=== PATIENT | female | born 1980 | race Caucasian/White ===

== ENCOUNTER 2016-11-07 17:05 | Observation (INO) | payer BC, OTHER ==
[~2016-11-07] VITALS: Ht 162.6 cm; Wt 76.6 kg
[~2016-11-07 17:05] MED LIST: BENA25CA2 PO; EXTR500C4 PO; IBUPOTC PO; NEXI40CA PO; PERCOCET PO
[2016-11-07] MEDS ORDERED: PRED10PA2 PO (17:31)
[2016-11-07] MEDS ORDERED: MOBI7.5T10 PO (17:31)
[2016-11-07] MEDS ORDERED: METO25TA74 PO (17:31)
[2016-11-07] MEDS ORDERED: TOPA50TA7 PO (17:31)
[2016-11-07] MEDS ORDERED: NS 500 ML IV ONE (18:00)
[2016-11-07 18:08] LABS: BASO % 0.4 % (0.0-1.0); EOS % 0.4 % (0.0-3.0); LARGE UNSTAINED CELL # 0.1 K/mm3 (0.0-0.4); LARGE UNSTAINED CELL % 0.6 % (0.0-4.0); LYMPH # 1.6 K/mm3 (1.5-4.5); LYMPH % 18.7 % (24.0-44.0); MEAN CORPUSCULAR HEMOGLOBIN 29.3 pg (27.0-33.0); MEAN CORPUSCULAR HGB CONC 32.2 g/dl (32.0-36.5); MEAN CORPUSCULAR VOLUME 90.9 fl (80.0-96.0); MONO # 0.4 K/mm3 (0.0-0.8); MONO % 4.4 % (0.0-5.0); NEUTROPHILS # 6.1 K/mm3 (1.8-7.7); NEUTROPHILS % 75.5 % (36.0-66.0); PLATELET COUNT, AUTOMATED 279 k/mm3 (150-450); WHITE BLOOD COUNT 8.1 K/mm3 (4.0-10.0)
[2016-11-07 18:12] LABS: CONTROL LINE HCG INT CTR LINE PRESENT
[2016-11-07 18:20] LABS: ANION GAP 9 MEQ/L (8-16); BLOOD UREA NITROGEN 24 MG/DL (7-18); CALCIUM LEVEL 9.4 MG/DL (8.5-10.1); CARBON DIOXIDE LEVEL 21 MEQ/L (21-32); CHLORIDE LEVEL 112 MEQ/L (98-107); GLOMERULAR FILTRATION RATE 53.5 (>60); GLUCOSE, FASTING 116 MG/DL (70-105); POTASSIUM SERUM 3.7 MEQ/L (3.5-5.1); SODIUM LEVEL 142 MEQ/L (136-145)
[2016-11-07] MEDS ORDERED: ISOVUE-370 76% 100ML VIAL (Q9967) As Ordered ONE (18:25)
[2016-11-07] MEDS ORDERED: ACETAMINOPHEN TAB 650MG DOSE (2X325MG) PO ONE (19:00)
[2016-11-07] MEDS ORDERED: GI COCKTAIL 50ML BTL(HYOSCYAMINE/MAALOX/LIDOCAINE VISCOUS)(1:3:1) PO ONE (19:00)
--- NOTE | 2016-11-07 19:00 | REPUSA ---
History: R/o PE. Comparison: No prior CTA of the chest available Technique: A CT-pulmonary angiogram was performed. A dose of intravenous contrast was administered. A xial images were displayed, as were sagittal and coronal reconstructions. A 3-D model was also render ed. Exam DLP: Findings: No CT evidence of pulmonary embolism is identified. There is no evidence of thoracic aortic aneurysm or dissection. No air space consolidation is identified in the lungs. There is no evidence of pulmonary edema. No pa thologically enlarged hilar or mediastinal lymph nodes are identified. No significant pleural or titi cardial fluid collection is seen. There is no evidence of pneumothorax. Mild The included portion of the upper abdomen does not show significant abnormality. Impression: No evidence of pulmonary embolism is identified.
[2016-11-07 20:52] LABS: ABG BASE EXCESS -4.6 (-2.0-2.0); ABG HCO3 16.9 MEQ/L (22.0-26.0); ABG PARTIAL PRESSURE CO2 23.7 mmHg (35.0-45.0); ABG PARTIAL PRESSURE O2 96.4 mmHg (75.0-100.0); ABG STANDARD HCO3 20.7 MEQ/L (22.0-26.0); ABG TOTAL CO2 17.7 MEQ/L (22.0-29.0); ABG pH (ARTERIAL) 7.472 UNITS (7.350-7.450)
[2016-11-07] MEDS ORDERED: diphenhydrAMINE 50 MG CAP PO SCH (21:00)
[2016-11-07] MEDS ORDERED: TOPIRAMATE (TopAMAX) 25 MG TAB PO SCH (21:00)
[2016-11-07] MEDS ORDERED: DIPH50CA PO (21:34)
[2016-11-07] MEDS ORDERED: ACETAMINOPHEN TAB 650MG DOSE (2X325MG) PO PRN (22:45)
[2016-11-07] MEDS ORDERED: NS 1,000 ML IV SCH (23:00)
[2016-11-08] VITALS (9 sets, daily range): BP systolic 122–141; BP diastolic 80–93; PULSE 160
[2016-11-08] MEDS: METOPROLOL SUCC *XL* 25MG TAB (TopROL *XL*) PO SCH ×2 (01:44→20:55)
--- NOTE | 2016-11-08 02:09 | HPE ---
DATE OF ADMISSION: 11/08/2016 PRIMARY CARE PROVIDER: Dr. Avila. FAMILY PRACTICE MD: Dr. Hernandez CHIEF COMPLAINT: Chest pain and shortness of breath. HISTORY OF PRESENT ILLNESS: Ms. Sol is a pleasant 36-year-old female with past medical history of hypertension who presented to the emergency department (ED) with complaint of worsening chest pain and shortness of breath in the last 2 days. Chest pain is located midsternal area and occurred while she was trying to do the dishes. Describes as sharp and at times will go to her back and her left jaw. Occasionally associated with numbness to her jaw and her arm. In the last 2 days, she has had multiple episodes of chest pain each one can last anywhere from minutes to 4 hours. Symptoms would usually go away with rest but today her symptoms worsened despite just sitting and trying to brush her hair. Pain is worse with deep inspiration, minimal exertion but not with positional change. Improves with Aleve and hot baths. Associated with shortness of breath, palpitations, dry cough, intermittent diffuse joint pain, from elbow down to ankles. Denies paroxysmal nocturnal dyspnea, pillow orthopnea nausea, leg swelling, fevers, chills, night sweats, difficulty with speech and swallow, new rashes, lesions. Admits that her chest pain actually started in August 2016 while she was at work. At that time, she initially had left arm pain, which immediately radiated to her mid chest and then to her back. At that time, she initially ignored her symptoms because she thought it was a viral infection. However, her chest pain persisted and she later presented to the emergency room (ER) in [place]. She was then found to be hypertensive at 190/110, was diagnosed with anxiety and sent home with Medrol pack. Reported brief relief of symptom until she started tapering her dose. Since then has had intermittent chest pain with exertion such as running or walking up the stairs. She had another "flare-up" episode which included chest pain, palpitations, and diffuse joint pains 2 weeks ago, There was suspicion that she might have rheumatoid arthritis because of positive rheumatoid factor in the past and was started on prednisone. She was also evaluated by Dr. Hernandez, had a stress test and echocardiogram which were negative. She was then started on metoprolol. States that since starting on the metoprolol, her palpitations improved but the rest of her symptoms remain despite Prednisone. Prior to August, patient was able to run 5-10K, 1 mile uphill without any symptoms. In the ED, after walking the patient for a short distance, her pulse oximetry dropped down to 72 on room air. Heart rate fluctuated from 60s to 120s. PAST MEDICAL HISTORY: 1. Murmur diagnosed at . Patient had a workup for this many years ago. 2. Hypertension diagnosed at 33. 3. Headaches with hypertensive episodes. 4. GERD. 5. Insomnia. PAST SURGICAL HISTORY: 1. Hysterectomy for uterine prolapse. 2. Tonsillectomy. 3. Multiple esophagogastroduodenoscopies (EGDs) for GERD in [place]. ALLERGIES: No known drug allergies. HOME MEDICATIONS: - Prednisone, previously on 60 mg, now 10 mg, started 2 weeks ago - Mobic 7.5 mg daily, started 2 days ago, previously was taking Aleve, four pills up to 3-4 times a day - aspirin 325 mg daily, for pain - Topamax 50 mg by mouth twice a day, started by PCP for pain - Extra Strength Tylenol 1000 daily - Nexium 40 mg daily - Benadryl 50 mg nightly SOCIAL HISTORY: The patient used to be a social smoker, smoked probably for a total of 5 years, but only 1-2 cigarettes per day. She stopped smoking after her episodes started in August. Drinks three glasses of wine every few months. Does not notice that her symptoms worsen when she drinks wine. No drug use. 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 Previously was working at [employer]. No exposure to tuberculosis, asbestos. Currently lives at home with her family, three dogs. Lifetime travel includes going to [place] many years ago and also [place]. No travels recently. FAMILY HISTORY: Mother with breast cancer at 39 and thyroid tumor. Father with tachyarrhythmia, ulcerative colitis, osteoarthritis. Paternal grandfather had CVA and pacemaker at 42. Siblings are healthy. No family history of sudden in the family at a young age. REVIEW OF SYSTEMS: CONSTITUTIONAL: Denies fevers, chills, rigors. Positive for 7-pound weight loss in the last 7 days due to decreased appetite. HENT: Positive for intermittent headaches when her blood pressure is high, but no difficulty with speech, swallow. Positive for intermittent vertigo since being on Topamax. EYES: No diplopia, blurred vision, transient vision loss. CARDIOVASCULAR: As above. PULMONARY: As above. No hemoptysis. GASTROINTESTINAL: Denies hematochezia, melena, or hematemesis, nausea, vomiting , diarrhea, constipation. GENITOURINARY: No dysuria, frequency or hematuria. MUSCULOSKELETAL: Positive for intermittent joint pain as above, no joint swelling NEUROLOGICAL: No paralysis, paresthesia. Positive for headache as above. ENDOCRINE: Positive for excessive dry mouth in the last 2 weeks, has been drinking more water. Negative for diabetes or thyroid disease. LYMPHATICS: No lumps, bumps, or swelling anywhere in neck, axilla, or groin. HEMATOLOGY: No abnormal bleeding or bruising. INTEGUMENT: No new rashes, lesions PSYCHIATRIC: Was told that her symptoms were related to anxiety PHYSICAL EXAMINATION: VITAL SIGNS: Blood pressure 127/90, heart rate 86, temperature 98.7. Her highest blood pressure in the ED was 175/103. Heart rate highest was 126. Pulse oximetry lowest in the ED was 72% currently 99% on room air. Respiratory rate 18. GENERAL: Patient is lying in bed approximately 30-degree angle, comfortable, no acute respiratory or psychiatric distress. and friend at bedside. HEENT: Normocephalic, atraumatic. Moist oral mucosa. No thrush or lesions appreciated. Nasal septum midline. EYES: Extraocular movement intact. Pupils equal and reactive to light. NECK: Supple. Trachea midline. No jugular venous distention (JVD). No thyromegaly. CHEST: Symmetric chest rise. No accessory muscle use. Breath sounds were diminished in bilateral lung bases, but clear without rales, wheezing or rhonchi. HEART: Regular with normal S1, S2, could not appreciate murmurs or rubs or gallops. ABDOMEN: Soft, nontender, nondistended. Bowel sounds present. No guarding. No rebound. No peritoneal sign. No organomegaly. EXTREMITIES: No pedal edema. Pedal pulses present bilaterally. NEUROLOGIC: Strength 5/5 in all extremities, sensory intact. No focal deficits appreciated. SKIN: No obvious rashes or lesions appreciated. LYMPHATICS: No lymphadenopathy in axilla or groin. PSYCHIATRIC: Appears anxious. LABORATORY DATA: WBC 8.1, hemoglobin 14.2, hematocrit 44.1, platelets 270, neutrophils 75.5. Sodium 142, potassium 3.7, chloride 112, carbon dioxide 21, BUN 24, creatinine 1.2. This is increased compared to her previous labs 2 years ago, which was 0.9. Glucose 116, calcium 9.4. First set of troponins negative. ABG pH 7.47, pCO2 22.7, pO2 96.4. Chest x-ray showed no acute cardiopulmonary disease. CTA without evidence of PE. EKG showed sinus rhythm with ventricular rate of 98, QTc is 440. IMPRESSION AND PLAN: Ms. Sol is a 36-year-old female with history of hypertension, who presented tonight with shortness of breath, chest pain. 1. Chest pain. Etiology unclear. Possible causes include cardiac, pulmonary, autoimmune, or endocrinology. So far her first set of cardiac markers is negative. EKG was unrevealing in the emergency department (ED). Will continue to trend troponin. ED provider has spoken to Dr. Rodríguez, who at this time recommends performing echocardiogram with bubble study to further evaluate. In terms of pulmonary symptoms, aside from her dry cough she has no symptoms suggestive of infection. CTA also was unrevealing for pulmonary embolism (PE). She does have some joint pain and reportedly had rheumatoid factor check in the past and was told that it was positive. We will check rheumatoid factor and anti-cyclic citrullinated peptide (anti-CCP) along with EVI. It is interesting that her symptoms did not improve with steroids which would suggest that this is less likely to be autoimmune. She also reports palpitations and hypertensive with episodic headaches. Therefore, will also work her up for pheochromocytoma (pheo). 2. Hypoxia. Reason unclear. Occurred with ambulation. Currently doing well on room air. The patient will have workup as mentioned above. 3. Hypertension. Check plasma and urine catecholamines and renin aldosterone ratio due to her symptoms associated with headaches and palpitations. Have also added thyroid-stimulating hormone (TSH). 4. Acute kidney injury. Like secondary to NSAIDs. We will hold nephrotoxic medications and start with gentle hydration. 5. Gastroesophageal reflux disease (GERD). Continue home dose proton pump inhibitor (PPI). 6. Deep venous thrombosis (DVT) prophylaxis. Sequential compression devices (SCDs), thromboembolism deterrent stockings (TEDS) and heparin. DISPOSITION: Due to the patient's condition, we expect her stay to be greater than two midnights. My preceptor for this patient encounter was Dr. Nedra Larry. The preceptor was physically present in the building during the encounter and was fully available as needed. All aspects of the patient interview, examination, medical decision making process, and medical care plan development were reviewed and approved by the preceptor. The preceptor is aware and concurs with the plan as stated in the body of this note and will attest to such by his/her co-signature. TRACEE
[2016-11-08] MEDS: HEPARIN SOD (PORCINE) 5000 UNITS/ML VIAL SC SCH ×3 (05:20→20:52)
[2016-11-08 05:24] LABS: ALBUMIN 3.7 GM/DL (3.2-5.2); ANION GAP 9 MEQ/L (8-16); BLOOD UREA NITROGEN 18 MG/DL (7-18); CALCIUM LEVEL 8.1 MG/DL (8.5-10.1); CARBON DIOXIDE LEVEL 21 MEQ/L (21-32); CHLORIDE LEVEL 112 MEQ/L (98-107); CREATININE FOR GFR 0.95 MG/DL (0.55-1.02); GLOMERULAR FILTRATION RATE > 60.0 (>60); GLUCOSE, FASTING 86 MG/DL (70-105); MAGNESIUM LEVEL 2.3 MG/DL (1.8-2.4); MEAN CORPUSCULAR HEMOGLOBIN 30.3 pg (27.0-33.0); MEAN CORPUSCULAR HGB CONC 33.4 g/dl (32.0-36.5); MEAN CORPUSCULAR VOLUME 90.7 fl (80.0-96.0); PHOSPHORUS LEVEL 3.2 MG/DL (2.5-4.9); POTASSIUM SERUM 3.7 MEQ/L (3.5-5.1); RED CELL DISTRIBUTION WIDTH 12.9 % (11.5-14.5); SODIUM LEVEL 142 MEQ/L (136-145)
[2016-11-08] MEDS: PANTOPRAZOLE 40MG TAB (PROTONIX) PO SCH (08:00)
--- NOTE | 2016-11-08 08:47 | REP ---
AP PORTABLE CHEST: 11/07/2016. Comparison: CT angiogram chest 45 minutes ago. Clinical history: Chest pain. Findings: The lungs are well inflated and without infiltrate, effusion, atelectasis or mass. Heart is not enlarged. There is no vascular redistribution or pulmonary edema. The aorta is normal. Airway is intact. The bony thorax shows no acute finding on this portable chest. Impression: 1. No acute cardiopulmonary change. No change from the CT angiogram within the hour. Signed by Armen Mcguire MD 11/08/2016 08:51 A
[2016-11-08] MEDS ORDERED: predniSONE 10 MG TAB PO SCH (09:00)
--- NOTE | 2016-11-08 09:41 | IPNPDOC ---
Date Seen The patient was seen on 11/08/16. Progress Note SUBJECTIVE: Patient this morning tells me that she is feeling better she describes a substernal chest pain that radiates up. She tells me that is 2 out of 10 worse yesterday when she presented to the emergency room it was 8 out of 10 she has struggled with this intermittently since August tells me that she is also had shortness of breath with activity. OBJECTIVE PHYSICAL EXAMINATION: VITAL SIGNS: On the monitor before I entered the room her heart rate is in the 80s a Kaity to the room her heart rate does jump up to the low 100s Please see below. GENERAL: Pleasant middle-aged female lying flat in bed in no acute distress whatsoever. She appears mildly anxious HEENT: Pupils are equally round reactive to light she has moist mucous membranes no conjunctival pallor CARDIOVASCULAR: S1-S2 she is tachycardic but I'm examining her once I leave the room on the monitor her heart rate decreases. No rubs appreciated RESPIRATORY: Clear To auscultation. ABDOMINAL: Bowel sounds are present abdomen is soft EXTREMITIES: no clubbing cyanosis or edema NEUROLOGICAL: Awake alert oriented 3 sensory motor intact gait is intact her exam is nonfocal LABORATORY DATA: Please see below. MICROBIOLOGY: Please see below. IMAGING: Patient had a CT angiography of the chest did not that did not reveal any PE Echocardiogram: Ordered. DVT prophylaxis ordered?: Heparin every 8 ASSESSMENT AND PLAN: This is a 36-year-old female with chest pain and dyspnea. PROBLEMS: 1. Chest pain and dyspnea: Unclear etiology at this time the patient is on a PPI she has tried NSAID therapy in the past has been told is costochondritis is but answers did not help. The patient had a positive rheumatoid factor in the recent past as well and was given a short course of steroids however for the past week she does not steroids she has not had any significant improvement in her symptoms in fact the last 3 days or symptoms of worsened. The patient was reportedly started on beta jonatan for palpitations and this is helped her symptoms. The patient reportedly follows with Dr. Hernandez on the outpatient setting she was told she was going to have a stress echo this week Dr. Rodríguez was called by the emergency room and a bubble study was recommended and has been ordered. She'll of her cardiac workup be negative I do have some concern for possibly underlying anxiety given that she feels quite tachycardic when I entered the room she does appear to be anxious and her symptoms worsen while on steroids of course we must rule out organic etiologies first. CTA is negative and immunological workup has been sent including EVI rheumatoid factor and anti- CCP and endocrine workup has also been sent with ranitidine and catecholamines. The patient has had multiple EGDs in [place]. EKG does not have any evidence for pericarditis. The patient was reportedly hypoxic while ambulating in the emergency room yesterday evening however I did speak with the ICU nursing staff today who checked an ambulating O2 sat while she completed multiple laps around the unit without desaturating to a point where she required any oxygen. 2. Hypertension: Controlled at this time. Continue with metoprolol 3. Acute kidney injury: Also related to NSAIDs resolved 4. Gastroesophageal reflux disease: The patient on a PPI this could be determining factor to her symptoms as well. DISPOSITION: We'll continue monitor on telemetry. VS, I&O, 24H, Fishbone Vital Signs/I&O Vital Signs Date Time Temp Pulse Resp B/P Pulse Ox O2 Delivery O2 Flow Rate FiO2 11/08/16 08:00 Room Air 11/08/16 08:00 98.3 104 18 122/82 100 11/07/16 17:24 2 I&O- Last 24 Hours up to 6 AM 11/08/16 06:00 Intake Total 240 ml Balance 240 ml Laboratory Data 24H LABS Laboratory Tests 2 11/07/16 17:31: Activated Partial Thromboplast Time 20.5L, Anion Gap 9, B-Type Natriuretic Peptide < 5.0, White Blood Count 8.1, Red Blood Count 4.85, Hemoglobin 14.2, Hematocrit 44.1, Mean Corpuscular Volume 90.9, Mean Corpuscular Hemoglobin 29.3 , Mean Corpuscular Hemoglobin Concent 32.2, Red Cell Distribution Width 13.0, Platelet Count 279, Neutrophils (%) (Auto) 75.5H, Lymphocytes (%) (Auto) 18.7L, Monocytes (%) (Auto) 4.4, Eosinophils (%) (Auto) 0.4, Basophils (%) (Auto) 0.4, Neutrophils # (Auto) 6.1, Lymphocytes # (Auto) 1.6, Monocytes # (Auto) 0.4, Eosinophils # (Auto) 0.0, Basophils # (Auto) 0.0, C-Reactive Protein, Quantitative < 0.30, Blood Urea Nitrogen 24H, Creatinine 1.20H, Sodium Level 142 , Potassium Level 3.7, Chloride Level 112H, Carbon Dioxide Level 21, Calcium Level 9.4, Total Creatine Kinase 33, Creatine Kinase MB 1.0, Creatine Kinase MB Relative Index 3.03, Glomerular Filtration Rate 53.5L, Human Chorionic Gonadotropin, Qual NEGATIVE, Large Unclassified Cells # 0.1, Large Unclassified Cells % 0.6, Rheumatoid Factor 18.1H, Thyroid Stimulating Hormone (TSH) 0.937, Troponin I < 0.02 11/07/16 20:32: Arterial Blood pH 7.472H, Arterial Blood Partial Pressure CO2 23.7L, Arterial Blood Partial Pressure O2 96.4, Arterial Blood Total CO2 17.7L, Arterial Blood HCO3 16.9L, Arterial Blood Base Excess -4.6L, Arterial Blood Oxygen Saturation 98.1, Blood Gas Bicarbonate Standard 20.7L 11/08/16 00:55: Total Creatine Kinase 36, Creatine Kinase MB 1.0, Creatine Kinase MB Relative Index 2.77, Troponin I < 0.02 11/08/16 04:50: Anion Gap 9, Blood Urea Nitrogen 18, Creatinine 0.95, Sodium Level 142, Potassium Level 3.7, Chloride Level 112H, Carbon Dioxide Level 21, Calcium Level 8.1L, Glomerular Filtration Rate > 60.0, Albumin 3.7, Magnesium Level 2.3 , Phosphorus Level 3.2 11/08/16 08:58: CBC/BMP Laboratory Tests 11/07/16 17:31 Calcium Level 9.4, Total Creatine Kinase 33, Red Blood Count 4.85, Mean Corpuscular Volume 90.9, Mean Corpuscular Hemoglobin 29.3, Mean Corpuscular Hemoglobin Concent 32.2, Red Cell Distribution Width 13.0, Neutrophils (%) (Auto ) 75.5 H, Lymphocytes (%) (Auto) 18.7 L, Monocytes (%) (Auto) 4.4, Eosinophils ( %) (Auto) 0.4, Basophils (%) (Auto) 0.4, Neutrophils # (Auto) 6.1, Lymphocytes # (Auto) 1.6, Monocytes # (Auto) 0.4, Eosinophils # (Auto) 0.0, Basophils # ( Auto) 0.0 11/08/16 04:50 Red Blood Count 4.48, Mean Corpuscular Volume 90.7, Mean Corpuscular Hemoglobin 30.3, Mean Corpuscular Hemoglobin Concent 33.4, Red Cell Distribution Width 12.9 , Anion Gap 9 KERI FITZPATRICK MD Nov 08, 2016 09:41
--- NOTE | 2016-11-08 12:18 | ECHO ---
DATE OF PROCEDURE: 11/08/2016 REFERRING PHYSICIAN: Dr. Calvert. INDICATION: Shortness of breath, chest pain. Study was performed on 11/08/2016 and included "bubble study". HEIGHT: 64 inches. WEIGHT: 162 pounds. DIMENSIONS: IVS: 0.9 LV: 4.1 LVPW: 0.8 LA: 2.9 Aorta: 2.9 Ascending aorta: 3.4 LV systolic: 2.7 RV: 2.8 FINDINGS: The study is of good technical quality. The left ventricle is of normal size and systolic function with estimated ejection fraction (EF) 60-65%. Right ventricle is normal size and systolic function. Both atria appear normal. All four valves appear normal. No pericardial effusion is noted. Inferior vena cava is normal size. Aortic root, aortic arch and abdominal aorta all appear normal. Doppler interrogation reveals no significant aortic and mitral disease. There is trace tricuspid insufficiency with calculated pulmonary artery pressure in low 20s corresponding to normal values. Pulmonic valve is functionally competent. Mitral inflow pattern and tissue Doppler imaging of mitral annulus reveal normal diastolic function (E velocity of mitral inflow is 49.4 cm/sec, E prime velocity septal is 8.2 and lateral 11.7 cm/sec). Injection of agitated saline with and without cough revealed no evidence for [id number] shunt. Conclusions: 1. Normal LV size, systolic and diastolic function. 2. No valvular disease. 3. Normal CVP and likely normal pulmonary artery pressure. 4. No evidence for right to left shunt with injection of agitated saline. 5. Normal echocardiogram. Comments: SBE prophylaxis is not recommended. MTDD
--- NOTE | 2016-11-08 13:29 | CR ---
DATE OF CONSULTATION: 11/08/2016 REQUESTING PROVIDER: Dr. Calvert INDICATION: Chest pain, shortness of breath. HISTORY OF PRESENT ILLNESS: Mrs. Sol is previously unknown to me but she was seen by my colleague Dr. Hernandez in [place]. 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 It turns out that the story starts in early August. She tells me that she was previously doing very well and did not have any significant medical problems, but then in August she started experiencing pressure-like discomfort just left from her sternum. She initially did not pay much attention, but over time the pain got more and more severe and was present virtually 22/02. Taking deep breaths may have aggravated the pain some more but for the most part there was no significant effect. She took some nonsteroidal antiinflammatory drugs, which brought her small relief, but the pain was not severe enough to really look for additional attention. Then starting in September it even got more severe and started interfering with her daily routine. She was seen in the emergency room in [place] and it was felt that she had costochondritis. She got a few days of steroids, which brought some small transient relief but then the pain started radiating to her back just between spine and left scapula and into her left side of her neck as well. She would have days where the pain is so severe that she could barely move. It would be shooting from her neck towards the chest and activity would make the pain worse. She also experienced transient episodes of numbness in both upper and lower extremities. She was seen by her primary care physician, Dr. Avila, and it was felt that it was musculoskeletal in origin. She was given a course of steroids only about a week ago, which did not seem to make much difference. She continued to have severe pain, and what she describes as stiffness. She tells me that usually she wakes up in the morning and she can barely move and she actually goes and it takes almost an hour to get somewhat loose. Eventually though the pain was so excruciating and shortness of breath associated with the bad was so bad that she decided to come to the emergency room. On arrival to emergency room, she was tachycardic and hypertensive, but what was the most striking finding was that when she was ambulated her oxygen dropped into low 80s. Consequently, the decision was made to admit her for further observation. Emergency room evaluation did include electrocardiogram that was unremarkable. Cardiac enzymes that were unremarkable. She had normal BNP and normal CT angiography of his chest looking for pulmonary embolism. Not only that there was no evidence for pulmonary embolism but there also was no lung abnormality that would be detected. PAST MEDICAL HISTORY: 1. She has been taking metoprolol for episodes of tachycardia and hypertension. 2. She has gastroesophageal reflux disease (GERD). 3. Insomnia. SURGICAL HISTORY: Positive for hysterectomy, tonsillectomy and several esophagogastroduodenoscopies (EGDs) for GERD. ALLERGIES: No known allergies. She is taking prednisone taper, Mobic, aspirin, Topamax 50 twice a day for pain control, Tylenol, Nexium and Benadryl. 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 She is the mother of three children, the youngest is 11 years old. He is a social smoker when she will smoke a couple of cigarettes a few times a week but has not smoked since August. She lives with family. There is no recent travel. No significant alcohol other than social. FAMILY HISTORY: Mother has breast cancer and had hyperthyroidism. Father has benign tachycardia and ulcerative colitis. REVIEW OF SYSTEMS: She denies any fever, chills. There is no history of stroke. No ulcers. No skin lesions. No syncope or near-syncope. She has had occasional dizziness and vertigo type of symptoms. No bleeding problems. No epistaxis. No hemoptysis. No distinct cough. No abdominal pain. PHYSICAL EXAMINATION: Mrs. Sol is middle-aged white female who appears approximately her calendar age. I do not appreciate any distress. Seems alert and oriented and completely appropriate. Blood pressure 122/82, heart rate currently around 90 beats per minute. Saturation is 100% on room air and it has been in high 90s since she has been admitted. There were no spikes or high blood pressure since she has been in our hospital, but her heart rate fluctuates from 80s up to maybe 140s and is all sinus rhythm. Lungs are clear to auscultation with good air movement. I do not appreciate any wheezes, crackles or rhonchi. Heart exam with regular rhythm. No gallop, rub or murmur. Abdomen is soft. No tenderness. No rebound tenderness. No hepatosplenomegaly. Extremities are free of edema. Good peripheral pulses. There is small ecchymosis on her right calf. Neurologically, she is intact. I do not appreciate any weakness. I did not formally test deep tendon reflexes. She has very prominent cervical lordosis and there is some palpation tenderness just left from her spine on the cervical level and also thoracic level. LABORATORY: Her CBC is normal. Basic metabolic panel is also normal. Her TSH was within normal limits. Urinalysis was not performed. Her PTT was 20. She has very slightly positive rheumatoid factor at 18.1 and anti citrulline peptide and EVI screen are pending. Also, Lyme disease titer is pending. CT angiography of the chest is completely normal. She had an echocardiogram that was completely normal including [facility] bubble study looking for evidence for [id number] shunt. Electrocardiogram from admission reveals sinus rhythm with ventricular rate 90 beats per minute. I do not appreciate any ST-T abnormalities. ASSESSMENT/PLAN: I do not believe that the patient has a cardiac problem. She has pain that started as left sided chest pain and continues to be in her chest but mostly in her back and neck . It has been constant now for about 3 months or slightly longer. It is does not seem to be aggravated by anything specific even though she feels more short of breath when she is physically active. Based on her description, it appears to me that it is mostly the fact that she has more pain and consequently she probably does not breathe deep enough fearing that it will aggravate the pain further. There is no evidence for pulmonary embolism. Her echocardiogram and ECGs are normal. She has normal cardiac enzymes and normal BNP. I am not sure how to reconcile her symptoms. I think it is reasonable to perform some form of imaging of her cervical and maybe even thoracic spine even though I do not appreciate any focal signs that certainly can have to do with her pain. From cardiac perspective, my suspicion for underlying cardiac disease is low enough that I do not believe that any further evaluation is warranted. I would discontinue her steroids as there has been no clinical improvement and it is not clear what is the diagnosis we are trying to treat. I spoke about the patient with Dr. Calvert, and I also explained to the patient and her and mother that even though I do not have the clear-cut answer, I do not believe there is a cardiac component or disease. CC: MD Thomas Madrid MD MTDD
[2016-11-08] MEDS ORDERED: diphenhydrAMINE INJ 50MG/ML VIAL (J1200) IV PRN (20:30)
[2016-11-08] MEDS: TOPIRAMATE (TopAMAX) 25 MG TAB PO SCH (20:51)
[2016-11-08] MEDS: KETOROLAC 30 MG/ML VIAL (J1885) IV SCH (20:54)
--- NOTE | 2016-11-08 21:00 | ECGEPIP ---
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
[2016-11-09] VITALS: BP 117/78; PULSE 110
[2016-11-09] MEDS: KETOROLAC 30 MG/ML VIAL (J1885) IV SCH (03:45)
[2016-11-09 04:00] VITALS: BP 102/65
[2016-11-09 05:20] LABS: ALBUMIN 3.4 GM/DL (3.2-5.2); CALCIUM LEVEL 8.3 MG/DL (8.5-10.1); CREATININE FOR GFR 1.16 MG/DL (0.55-1.02); GLOMERULAR FILTRATION RATE 55.7 (>60); PHOSPHORUS LEVEL 3.5 MG/DL (2.5-4.9); POTASSIUM SERUM 3.4 MEQ/L (3.5-5.1)
[2016-11-09 05:24] LABS: MEAN CORPUSCULAR HEMOGLOBIN 29.9 pg (27.0-33.0); MEAN CORPUSCULAR HGB CONC 32.6 g/dl (32.0-36.5); MEAN CORPUSCULAR VOLUME 91.7 fl (80.0-96.0); WHITE BLOOD COUNT 6.4 K/mm3 (4.0-10.0)
[2016-11-09] MEDS: HEPARIN SOD (PORCINE) 5000 UNITS/ML VIAL SC SCH (06:22)
--- NOTE | 2016-11-09 07:48 | REP ---
MRI CERVICAL SPINE WITHOUT CONTRAST: 11/08/2016 CLINICAL HISTORY: Interscapular pain radiating to sternal region on the left. States that when posterior pain increases, she becomes syncopal and tachycardia. Pain extends into the neck from the interscapular region. TECHNIQUE: Sagittal T1, T2 and STIR images with axial T1-T2 sequences provided. FINDINGS: Vertebral body heights and marrow signal normal at all levels in the cervical upper thoracic spine. Lordosis is maintained. The disc space and disc water signal also generally maintained. Cervical cord shows no syrinx, atrophy, hemorrhage or mass. There is ample subarachnoid space at the craniocervical junction with no cerebellar tonsillar ectopia. Dens intact. C2-3 through C7-T1: There is no significant disc bulge or herniation and no spinal or foraminal stenosis at any of these levels. IMPRESSION: 1. Normal MRI cervical spine. No spinal or foraminal stenosis, intrinsic signal abnormality within the cord, syrinx, atrophy or mass. No visible or significant degenerative disc disease. Craniocervical junction normal. Signed by Armen Mcguire MD 11/09/2016 08:40 A
--- NOTE | 2016-11-09 07:56 | REP ---
MRI THORACIC SPINE WITHOUT CONTRAST: 11/08/2016. Clinical history: Interscapular pain radiating to the sternal region on the left. The pain increases during ambulation and she may become syncopal or tachycardia, about 3 day symptom duration. The patient had a cervical spine study this date and a portable chest and CT angio chest last evening. Technique: Marker placed at the T2 level and confirmed in position by alignment specialist sagittal images including the craniocervical junction through the upper thoracic region. Axial C7-T1 through T12-L1 images with T1 and T2 weightings along with sagittal T1, T2 and STIR sequences provided. Findings: A normal thoracic kyphosis is seen. There is a small hemangioma in the T8 vertebral body. The vertebral disc space heights and disc water signal are maintained throughout this study. There is no loss of vertebral body heights . Scoliosis. No exaggerated kyphosis. At C7-T1 through T7-8 there is no disc bulge herniation and no spinal or foraminal stenosis. At T8-9 there was a right paracentral disc bulge but this does not abut or flatten the ventral cord surface. There is ample subarachnoid space and foramina. At T9-10, T10-11 through T12-L1 there is no disc bulge or herniation and no spinal or foraminal stenosis. No intrinsic cord signal abnormality, syrinx, atrophy or mass. The conus ends below the T12-L1 level off the field of view. No paraspinal mass. I see no adjacent pleural effusion. Impression: 1. Right paracentral T8-9 disc bulge without disc herniation abutting or flattening of the ventral cord surface, spinal or foraminal stenosis. 2. All the other thoracic levels are intact and without spinal or foraminal stenosis, disc herniation or protrusion. 3. Disc space heights, vertebral body heights and marrow signal normal throughout. No intrinsic cord signal abnormality. Signed by Armen Mcguire MD 11/09/2016 08:41 A
[2016-11-09 08:00] VITALS: BP 111/80
[2016-11-09] MEDS: PANTOPRAZOLE 40MG TAB (PROTONIX) PO SCH (08:29)
[2016-11-09] MEDS: TOPIRAMATE (TopAMAX) 25 MG TAB PO SCH (08:29)
--- NOTE | 2016-11-09 13:58 | DSES ---
DATE OF ADMISSION: 11/08/2016 DATE OF DISCHARGE: 11/09/2016 DISCHARGE DIAGNOSIS: Chest pain. SECONDARY DIAGNOSES: 1. Shortness of breath. 2. Hypertension. 3. Acute kidney injury. 4. Gastroesophageal reflux disease. HOSPITAL COURSE: The patient is a 36-year-old female with a rather perplexing history who around August began having episodic pleuritic chest pain associated with shortness of breath, which was affecting her activities of daily living. She normally is running significant amounts every day but has not been feeling able to do it. She has had intermittent bouts that have been evaluated in numerous emergency rooms without any clear diagnosis being made. She was recently seen in the [facility], where she had a positive rheumatoid factor. She was prescribed Mobic and prednisone. She states that over the next 2 weeks of being on these medications, her symptoms actually worsened. When she presented to the emergency room, she was tachycardic. She also reports a history of intermittent episodes of hypertension, as well, although she was not significantly hypertensive during her stay here, and she was recently started on metoprolol for this. During her hospital course here, she was admitted to the progressive care unit, monitored on telemetry. Laboratory studies were fairly unremarkable other than some mild acute kidney injury likely related to nonsteroidal antiinflammatory drug (NSAID) use, resolved with holding of the NSAIDs. The patient had multiple sets of cardiac enzymes, which were negative, a brain natriuretic peptide (BNP) within normal limits, a thyroid-stimulating hormone (TSH) was within normal limits, and a beta hCG, which was negative. Given her curious history, a renin level was checked, as well as serum catecholamine, also which are currently pending at this time. She also did have a fairly unremarkable urinalysis (UA). Urine catecholamines were checked and are currently pending at this time. Rheumatoid factor was mildly elevated at 18.1. An anti-CCP and antinuclear antibody (EVI) are currently pending. A Lyme titer is pending, also. The patient did have a CT angiography of the chest, which was essentially unremarkable and did not reveal any pulmonary embolism (PE). She also had cervical and thoracic MRIs, which were essentially normal and did not reveal any etiology for her symptoms. The patient was seen in consultation by Dr. Rodríguez, who performed an echocardiogram with a bubble study, which was also fairly normal. ASSESSMENT AND PLAN: This is a 36-year-old female with episodic chest pain and dyspnea. PROBLEM: Episodic chest pain and dyspnea. Her chest pain etiology is unclear at this time. Given that it did worse with steroids, I feel rheumatological conditions are less likely. An endocrine workup has been sent, and she will be followed up with her primary care provider, including renin, serum, and urine catecholamines. She has been told in the past that it is costochondritis. This did not improve with NSAIDs, which I feel is unlikely. Dr. Rodríguez does not feel that there is a cardiac etiology to her symptoms. However, she does have followup scheduled with Dr. Hernandez this week, which she should keep. Imaging here did not reveal any significant abnormalities. She was not hypoxic on ambulations at home. At the present time, her symptoms have completely resolved. She would like to go home. I do have a strong suspicion that her chest pain and dyspnea may be related to anxiety. Throughout her stay, she was noted to be tachycardic when physicians were in the room but on the monitor was no longer tachycardic when they were not in the room. She does appear to be anxious and have anxiety, or it is certainly possible that this is secondary to an organic cause which is yet to fully present itself. At this time, she is medically stable for discharge home when cleared by physical therapy. SUBJECTIVE: Today, the patient reports she is feeling better. She wants to go home. She has no chest pain, shortness of breath, nausea, vomiting, diarrhea, fevers, or chills. OBJECTIVE: VITAL SIGNS: Temperature 97.9, pulse 77, respiratory rate 18, blood pressure (BP) 111/80, oxygen (O2) saturation 100% on room air. GENERAL: She is a young middle-aged healthy female up and ambulating around her room. She does not appear to be in any acute distress. HEENT: Cranial nerves II-XII are grossly intact. She has moist mucous membranes. No elevated in central venous pressure (CVP). CARDIOVASCULAR EXAMINATION: S1, S2. There are no rubs. RESPIRATORY EXAMINATION: Is completely clear. ABDOMINAL EXAMINATION: Is benign. EXTREMITIES: No clubbing, cyanosis, or edema. LABORATORY STUDIES AND IMAGING: As outlined above. ASSESSMENT AND PLAN: This is a 36-year-old female with chest pain and dyspnea. PROBLEMS: 1. Chest pain and dyspnea. As outlined above, it may be related to an endocrine disorder. She should followup her serum and urine catecholamine screen, as well as renin levels, with her primary care. It does not appear to be a cardiac etiology, but she is to followup with Dr. Hernandez. It is quite possible that this is secondary to anxiety versus an organic cause which is yet to fully present itself. She has a mildly positive Rh. Anti-CCP is currently pending. EVI screen is also pending. 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 She is concerned that this was a fungal infection or possibly rheumatoid arthritis, but she does report the metoprolol helps her symptoms. 2. Hypertension. She can continue with metoprolol. 3. Acute kidney injury. Possibly related to NSAIDs. This did resolve with cessation. Will avoid taking Mobic. 4. Gastroesophageal reflux disease. She is on a proton pump inhibitor (PPI), and this may be a contributing factor to her symptoms, as well. 5. Positive rheumatoid factor. She certainly does not meet diagnostic criteria for rheumatoid arthritis. Will discontinue any further steroids and would avoid them in the future unless a clear diagnosis made, if symptoms do not improve with steroids and NSAIDs, making rheumatoid arthritis or other rheumatologic condition less likely. DISPOSITION: The patient is being discharged home to the care of her family. She has been cleared by physical therapy. She is to followup with her primary care provider within [address] Hernandez as previously scheduled. Her diet and activity are as prior to admission. MEDICATIONS AT THE TIME OF DISCHARGE: - Benadryl 50 mg as needed nightly - Nexium 40 mg daily - metoprolol extended release 25 mg nightly - Topamax 50 mg twice a day Greater than 30 minutes spent organizing disposition.
[2016-11-09] MEDS ORDERED: TOPI25TA5 PO (16:27)
[2016-11-10 14:14] LABS: SJOGREN'S ANTI SS-A <0.2 AI (0.0-0.9); SJOGREN'S ANTI SS-B 1.1 AI (0.0-0.9)
[2016-11-11 00:07] LABS: Lyme Disease IgG/IgM Antibodie <0.91 ISR (0.00-0.90); Lyme Disease IgM Ab Quantitati <0.80 index (0.00-0.79)
[2016-11-19 14:19] LABS: ALDOSTERONE 5.1 ng/dL (0.0-30.0); DOPAMINE PLASMA <30 pg/mL (0-48); EPINEPHRINE PLASMA 24 pg/mL (0-62); NOREPINEPHRINE PLASMA 320 pg/mL (0-874)
== END 2016-11-09 09:35 | disposition home or self-care (01) ==
LOC: EDBD 17:05 → M ED 18:03 → M ED INP 18:04 → UNDOADMOB 11-08 00:16 → M ICU 11-08 01:24 → M ED INP 11-08 01:24 → UNDODISOB 11-09 09:35
PROVIDERS: ADMIT Internal Medicine Nephrology; ATTEND Internal Medicine
DX: R07.9 Chest pain, unspecified (principal); R06.02 Shortness of breath; I10 Essential (primary) hypertension; N17.9 Acute kidney failure, unspecified; K21.9 Gastro-esophageal reflux disease without esophagitis; Z79.899 Other long term (current) drug therapy
CPT/HCPCS: 36415; 36600; 71010; 71275; 72141; 72146; 80048; 80069; 81001; 82088; 82383; 82384; 82550; 82553; 82607; 82803; 83735; 83880; 84244; 84443; 84703; 85025; 85027; 85730; 86038; 86140; 86200; 86431; 86617; 93005; 93041; 96372; 96374; 96375; 96376; 97161; 99285; J1200; J1885; Q9967

== ENCOUNTER 2016-11-09 12:24 | Observation (INO) | payer OTHER ==
[~2016-11-09] VITALS: Ht 162.6 cm; Wt 72.0 kg
[~2016-11-09 12:24] MED LIST changes: +DIPH50CA PO; +METO25TA74 PO; +MOBI7.5T10 PO; +PRED10PA2 PO; +TOPA50TA7 PO
[2016-11-09] MEDS ORDERED: GI COCKTAIL 50ML BTL(HYOSCYAMINE/MAALOX/LIDOCAINE VISCOUS)(1:3:1) PO ONE (13:45)
--- NOTE | 2016-11-09 14:52 | ECGEPIP ---
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
[2016-11-09 14:56] LABS: BASO % 0.3 % (0.0-1.0); EOS # 0.1 K/mm3 (0.0-0.50); EOS % 1.4 % (0.0-3.0); LARGE UNSTAINED CELL # 0.1 K/mm3 (0.0-0.4); LARGE UNSTAINED CELL % 1.4 % (0.0-4.0); LYMPH % 24.5 % (24.0-44.0); MEAN CORPUSCULAR HEMOGLOBIN 29.9 pg (27.0-33.0); MEAN CORPUSCULAR HGB CONC 33.6 g/dl (32.0-36.5); MONO # 0.5 K/mm3 (0.0-0.8); MONO % 6.8 % (0.0-5.0); NEUTROPHILS # 5.1 K/mm3 (1.8-7.7); NEUTROPHILS % 65.6 % (36.0-66.0); PLATELET COUNT, AUTOMATED 235 k/mm3 (150-450); RED CELL DISTRIBUTION WIDTH 12.7 % (11.5-14.5); WHITE BLOOD COUNT 7.7 K/mm3 (4.0-10.0)
--- NOTE | 2016-11-09 15:15 | REP ---
CHEST, PA AND LATERAL: 11/09/2016. Clinical history: Dyspnea and cough. Comparison: Portable chest 11/07/2016, CT angiogram chest 11/07/2016. Both of these are negative for acute finding. Findings: Lung reyez are well inflated without pleural effusion, lateral pleural thickening or acute infiltrate. No apical pleural scarring, pneumothorax, or pneumomediastinum. Heart is not enlarged. There is no vascular redistribution or edema. The aorta and airway were unremarkable. No compression deformity in the spine or focal lesion. No free air. Impression: 1. No acute cardiopulmonary disease. Stable chest. No change from the portable chest and CTA chest 2 days ago. Signed by Armen Mcguire MD 11/09/2016 05:22 P
[2016-11-09 15:23] LABS: ANION GAP 9 MEQ/L (8-16); BLOOD UREA NITROGEN 19 MG/DL (7-18); CALCIUM LEVEL 9.6 MG/DL (8.5-10.1); CARBON DIOXIDE LEVEL 24 MEQ/L (21-32); CHLORIDE LEVEL 112 MEQ/L (98-107); CREATININE FOR GFR 1.24 MG/DL (0.55-1.02); GLOMERULAR FILTRATION RATE 51.5 (>60); GLUCOSE, FASTING 107 MG/DL (70-105); POTASSIUM SERUM 4.1 MEQ/L (3.5-5.1); SODIUM LEVEL 145 MEQ/L (136-145)
[2016-11-09 15:27] LABS: ALBUMIN 3.9 GM/DL (3.2-5.2); ALBUMIN/GLOBULIN RATIO 1.39 (1.00-1.93); BILIRUBIN,DIRECT 0.1 MG/DL (0.0-0.2); BILIRUBIN,TOTAL 0.4 MG/DL (0.2-1.0); TOTAL PROTEIN 6.7 GM/DL (6.4-8.2)
[2016-11-09] MEDS ORDERED: ACETAMINOPHEN TAB 650MG DOSE (2X325MG) PO PRN (16:00)
[2016-11-09] MEDS ORDERED: ONDANSETRON 4MG/2ML VIAL (J2405) IV PRN (16:00)
[2016-11-09] MEDS: NS 1,000 ML IV SCH (16:23)
[2016-11-09] MEDS ORDERED: TOPI25TA5 PO (16:27)
[2016-11-09] MEDS ORDERED: SUCRALFATE SUSP 1GM/10ML UD PO ONE (18:15)
[2016-11-09] MEDS ORDERED: IPRATROPIUM 0.02% SOLN 0.5MG/2.5 ML NEB NEB ONE (18:45)
[2016-11-09] MEDS ORDERED: METOPROLOL TART 25 MG TABLET PO ONE (18:45)
[2016-11-09] MEDS ORDERED: LEVALBUTEROL 1.25 MG/0.5 ML CONCENTRATE NEB INH PRN (18:45)
[2016-11-09] MEDS ORDERED: BUDESONIDE 0.5 MG/2 ML INHALATION SUSPENSION INH ONE (18:45)
[2016-11-09] MEDS ORDERED: SUCRALFATE 1 GM TAB PO ONE (18:45)
[2016-11-09] MEDS ORDERED: MONTELUKAST 10 MG TAB PO ONE (18:45)
[2016-11-09] MEDS ORDERED: IPRATROPIUM 0.02% SOLN 0.5MG/2.5 ML NEB INH PRN (18:45)
[2016-11-09] MEDS ORDERED: PANTOPRAZOLE 40MG TAB (PROTONIX) PO ONE (18:45)
[2016-11-09] MEDS ORDERED: LEVALBUTEROL 1.25 MG/0.5 ML CONCENTRATE NEB NEB ONE (18:45)
[2016-11-09] MEDS: IPRATROPIUM 0.02% SOLN 0.5MG/2.5 ML NEB INH SCH (19:07)
[2016-11-09] MEDS: LEVALBUTEROL 1.25 MG/0.5 ML CONCENTRATE NEB INH SCH (19:08)
--- NOTE | 2016-11-09 19:38 | HPE ---
DATE OF ADMISSION: 11/09/2016 PRIMARY CARE PHYSICIAN: Dr. Avila TRUCK DRIVER INSTRUCTOR: Dr. Thomas Hernandez CHIEF COMPLAINT: Shortness of breath, chest pain. HISTORY OF PRESENTING ILLNESS: This is a 36-year-old female with history of hypertension, was admitted on 11/08/2016, discharged on 11/09/2016, for evaluation of chest pain and palpitations. Underwent CT chest which showed no pulmonary embolism, MRI of the cervical and thoracic spine, and hyster machine operator consult, all of which showed no acute abnormalities. Recommendations are for further evaluation of the gastrointestinal (GI) system per her primary care physician. Dr. Rodríguez felt that the patient's symptoms were not related to any cardiac issues. She had no valvular disease on recent echocardiogram with normal ejection fraction. Upon being discharged, patient walked into her house and tried to take a shower, when she had a bout of worsening shortness of breath, significant tachycardia, and atypical chest pain in the epigastric region radiating to the back, prompting her to return to the emergency room. She was found to be tachycardic, ventricular rate of 130 sinus, acute kidney injury with creatinine of 1.24. Hospitalist service was called for further evaluation. Patient stated that she was previously diagnosed with asthma secondary to severe reflux, initially treated, and shortness of breath subsided. She currently complains of chronic cough that is nonproductive. No fever or chills after discharge. Denies any current nonsteroidal antiinflammatory drug (NSAID) use, as previous acute renal failure was thought to be secondary to NSAIDs. PAST MEDICAL HISTORY: 1. Murmur diagnosed at , recurrent echo October 2016 showed no valvular disease. 2. Hypertension, diagnosed at age 33. 3. Headaches with hypertensive episodes. 4. Reflux. 5. Insomnia. 6. Prior history of asthma. 7. Acute kidney injury secondary to NSAIDs. PAST SURGICAL HISTORY: 1. Hysterectomy for uterine prolapse. 2. Tonsillectomy. 3. Multiple EGDs for reflux in [place]. ALLERGIES: No known drug allergies. HOME MEDICATIONS: - diphenhydramine 50 mg nightly - Nexium 40 daily - metoprolol 25 nightly - Topamax 50 twice a day SOCIAL HISTORY: Previously smoked cigarettes, a total of 5 years, 1-2 cigarettes daily, quit smoking in August. Drinks 3 glasses of wine every few months. 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 Currently lives at home with her family and three dogs. Lifetime travel includes [place] and [place]. No recent travels. FAMILY HISTORY: Mother had breast cancer age 39, thyroid tumor. Father with tachyarrhythmia, ulcerative colitis, osteoarthritis. Paternal grandfather CVA, pacers. Siblings are healthy. No family history of sudden . REVIEW OF SYSTEMS: Per history of present illness (HPI). 12-point system otherwise negative. PHYSICAL EXAMINATION: Temperature 97.9, pulse 77, respiratory rate 18, blood pressure 111/80, 100% on room air. Generally, coughing at the bedside, able to speak in full sentences, faint expiratory wheezing, diminished breath sounds. Heart S1, S2, sinus tachycardia. No cyanosis. No use of respiratory or accessory muscles. Abdomen soft, nontender, nondistended. Extremities no pitting edema. LABORATORY DATA: 11/09/2016: CBC: White count 7.7, hemoglobin 13, hematocrit 41, platelet count 235. Sodium 145, potassium 4.1, chloride 112, bicarbonate 24, BUN 19, creatinine 1.24, glucose 107, total bilirubin 0.4, direct bilirubin 0.1, AST 13, ALT 25, alkaline phosphatase 58, total CK 40, MB-fraction 1, troponin less than 0.02, total protein 6.7, albumin 3.9, amylase 54, lipase 130, TSH 1.45. IMAGING STUDIES: Chest xray on 11/09/2016. No acute cardiopulmonary disease. No change from portable chest and CTA chest from 2 days ago. MRI of the thoracic and cervical spine. Normal MRI cervical spine, no visible significant degenerative disc disease. Thoracic spine MRI shows right T8-9 disc bulge without disc herniation, abutting, or flattening of the ventral cord. All other thoracic levels are without spinal or foraminal stenosis. ASSESSMENT AND PLAN: This is a 36-year-old female who presents to the emergency room as a readmission for complaints of shortness of breath and chest pain. Full workup included CT chest negative for pulmonary embolism (PE), MRI of the cervical and thoracic spine showing disc bulge at T8-9. Prior history of reflux and asthma as a child, tachycardic and tachypneic. CURRENT ISSUES: 1. Atypical chest pain. Patient will be admitted for observation. Upper gastrointestinal (GI) series in the morning. Empiric treatment with Carafate, proton pump inhibitor (PPI). Check for Helicobacter (H) pylori antigen. May need endoscopy for a biopsy. Defer to Dr. Mario. 2. Palpitations. Continue home dose of metoprolol. Thyroid stimulating hormone (TSH) is normal. Outpatient followup with her hyster machine operator. 3. History of asthma. Nebulizer treatments routinely. 4. Acute kidney injury secondary to nonsteroidal antiinflammatory drugs (NSAIDs). IV fluid trial. 5. Positive rheumatoid factor. Outpatient referral to a air cargo ground operations supervisor. 6. Deep venous thrombosis (DVT) prophylaxis with heparin subcutaneous.
[2016-11-09] MEDS: PERCOCET 5MG/325MG TAB PO PRN (20:07)
--- NOTE | 2016-11-09 20:15 | ECGEPIP ---
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
[2016-11-09] MEDS: SUCRALFATE 1 GM TAB PO SCH (22:48)
[2016-11-09] MEDS: HEPARIN SOD (PORCINE) 5000 UNITS/ML VIAL SC SCH (23:15)
[2016-11-10] VITALS: BP 100/61
[2016-11-10] MEDS: IPRATROPIUM 0.02% SOLN 0.5MG/2.5 ML NEB INH SCH ×6 (01:27→23:10)
[2016-11-10] MEDS: LEVALBUTEROL 1.25 MG/0.5 ML CONCENTRATE NEB INH SCH ×6 (01:27→23:10)
[2016-11-10] MEDS: NS 1,000 ML IV SCH ×2 (02:41→12:00)
[2016-11-10 04:00] VITALS: BP 98/55
[2016-11-10] MEDS: HEPARIN SOD (PORCINE) 5000 UNITS/ML VIAL SC SCH ×3 (06:11→21:51)
[2016-11-10] MEDS: SUCRALFATE 1 GM TAB PO SCH ×4 (07:24→21:51)
[2016-11-10 07:28] LABS: BASO % 0.6 % (0.0-1.0); EOS # 0.2 K/mm3 (0.0-0.50); EOS % 3.3 % (0.0-3.0); LARGE UNSTAINED CELL # 0.1 K/mm3 (0.0-0.4); LARGE UNSTAINED CELL % 1.8 % (0.0-4.0); LYMPH # 2.7 K/mm3 (1.5-4.5); LYMPH % 42.6 % (24.0-44.0); MEAN CORPUSCULAR HEMOGLOBIN 29.4 pg (27.0-33.0); MEAN CORPUSCULAR HGB CONC 33.2 g/dl (32.0-36.5); MEAN CORPUSCULAR VOLUME 88.6 fl (80.0-96.0); MONO # 0.4 K/mm3 (0.0-0.8); MONO % 6.5 % (0.0-5.0); NEUTROPHILS # 2.7 K/mm3 (1.8-7.7); NEUTROPHILS % 45.2 % (36.0-66.0); PLATELET COUNT, AUTOMATED 221 k/mm3 (150-450); RED CELL DISTRIBUTION WIDTH 12.8 % (11.5-14.5)
[2016-11-10 07:50] LABS: ANION GAP 10 MEQ/L (8-16); BLOOD UREA NITROGEN 16 MG/DL (7-18); CALCIUM LEVEL 8.8 MG/DL (8.5-10.1); CARBON DIOXIDE LEVEL 20 MEQ/L (21-32); CHLORIDE LEVEL 115 MEQ/L (98-107); CREATININE FOR GFR 1.17 MG/DL (0.55-1.02); GLOMERULAR FILTRATION RATE 55.1 (>60); GLUCOSE, FASTING 100 MG/DL (70-105); MAGNESIUM LEVEL 2.3 MG/DL (1.8-2.4); POTASSIUM SERUM 3.5 MEQ/L (3.5-5.1); SODIUM LEVEL 145 MEQ/L (136-145)
[2016-11-10 08:00] VITALS: BP 126/76
[2016-11-10] MEDS: BUDESONIDE 0.5 MG/2 ML INHALATION SUSPENSION INH SCH ×2 (08:00→19:19)
[2016-11-10] MEDS ORDERED: E-Z-GAS II EFFERVESCENT PACKET (SODIUM BICARB./CITRIC ACID/SIMETHICONE) As Ordered ONE (10:44)
[2016-11-10] MEDS ORDERED: E-Z-HD 98% w/w 340GM SUSP BTL As Ordered ONE (10:44)
[2016-11-10] MEDS ORDERED: E-Z PAQUE 60% w/v SUSP 355ML BOTTLE As Ordered ONE (10:44)
[2016-11-10] MEDS ORDERED: GI COCKTAIL 50ML BTL(HYOSCYAMINE/MAALOX/LIDOCAINE VISCOUS)(1:3:1) PO PRN (14:00)
--- NOTE | 2016-11-10 14:31 | IPN ---
DATE: 11/10/2016 36-year-old female seen at bedside this morning. She appears to be resting comfortably but she describes still having chest discomfort with radiation to her back, cough, intermittent wheeze. No nausea, some intermittent water brash. OBJECTIVE: Temperature is 98, pulse 92, respiratory rate is 18, blood pressure 126/76, SpO2 is 97% on room air. GENERAL: The patient appears to be in no acute distress. She is alert and oriented. HEENT: Unremarkable. LUNGS: Clear with occasional expiratory wheeze that clears with cough. HEART: Regular rate and rhythm. ABDOMEN: Soft. EXTREMITIES: No edema, no calf tenderness. LABORATORY DATA: White count 6.0, hemoglobin 12.4, platelets were 221, sodium 145, potassium 3.5, chloride 115, bicarbonate 20, anion gap 10, BUN 16, creatinine 1.17 down from 1.24, glucose 100, magnesium 2.3, troponin remains less than 0.02 times four. No EKG changes. Chest x-ray is unremarkable for any acute cardiopulmonary processes and she had a CT angio of the chest that was done on 11/07/2016, no evidence of pulmonary embolism. No acute findings. 1. Atypical chest pain. Recently seen and evaluated by Dr. Rodríguez on her last admission. He dated his consult 11/08/2016 and did not feel that there was any substantial underlying cardiac issues. She does have a history of asthma as well as gastroesophageal reflux disease (GERD). I did increase her Protonix to 40 mg twice a day. She is on Carafate 1 gram before food and at bedtime and I added on a gastrointestinal (GI) cocktail every 6 hours as needed. Will go ahead and continue with DuoNebs. Will give her a small dose Solu-Medrol and she did have an upper GI with small-bowel follow-through done today that we are awaiting those results. The conundrum is trying to understand what her chest discomfort may be related to. I do at this point suspect it is more likely related to GERD. I spoke to Dr. Champagne who has taken over the practice of Dr. Martinez as the design consultant in [place]. He did inform me that the patient's last EGD was done on 01/08/2016 which showed no abnormalities, no suggestion of Israel's esophagus or any other significant findings at that time. At any rate, we will proceed as indicated and I have spoken to Dr. Castro to see if he would be willing to consult on the patient tomorrow for a possible EGD, since she had an upper GI with small-bowel follow-through, the barium may interfere with the ability to do the scope today. 2. Asthma. As outlined above. 3. Insomnia. No current issues. 4. Hypertension. Will continue to keep an eye on this. She did receive a one-time dose of Lopressor. Blood pressures have been running fine today. I do suspect that there may be some underlying anxiety, will continue to follow to see how she does. 5. Deep venous thrombosis (DVT) prophylaxis. Subcutaneous heparin.
[2016-11-10 14:45] VITALS: BP 122/83
[2016-11-10] MEDS ORDERED: methylPREDNISolone INJ 125 MG/2 ML VIAL (J2930) IV ONE (14:45)
[2016-11-10] MEDS: PERCOCET 5MG/325MG TAB PO PRN ×2 (15:07→21:54)
--- NOTE | 2016-11-10 17:10 | REP ---
UPPER GI, AIR CONTRAST, AND SMALL BOWEL FOLLOW THROUGH: The procedure was performed under the direct supervision of Dr. Gibson. The images were reviewed with Dr. Gibson. Liquid barium and gas-producing granules were given in the erect position as well as liquid barium in the prone oblique position in order to perform a double contrast upper GI examination. Additionally, liquid barium was given at the end of the examination in order to perform a small bowel follow through. The oral and pharyngeal stages of deglutition are unremarkable. Esophageal transport is prompt and efficient and there is no esophagitis, stricture, mucosal ring or hiatal hernia. The gastroesophageal junction is patulous and there is gastroesophageal reflux demonstrated to above the level of the yandy. The stomach flynn are normally outlined. The rugal folds are smooth and regular. There is no gastritis, neoplasm or ulcer disease. The duodenal flynn are normally outlined. The mucosal folds are smooth and regular. There is no duodenitis, pancreatitis, peptic ulcer disease or neoplasm. The visualized portion of the proximal small bowel appears normal in course and caliber. The barium column was followed through the small bowel to the level of the terminal ileum. Small bowel transit time is approximately 40 minutes. During fluoroscopy, gentle palpation shows all loops are freely movable and pliable. There are no fixed or angulated loops. The small bowel mucosal pattern is normal in course and caliber. There is no transition to suggest a partial small bowel obstruction. Spot filming of the terminal ileum shows it to be unremarkable. IMPRESSION: The gastroesophageal junction is patulous and there is gastroesophageal reflux demonstrated to above the level of the yandy. Otherwise, unremarkable double contrast upper GI and small bowel follow through examination. 2 minutes and 36 seconds of fluoroscopy time was utilized for this procedure. Reviewed by FABIAN Oconnor 11/11/2016 05:04 PEdited and Signed by Manas Gibson MD 11/12/2016 12:55 P
[2016-11-10 20:00] VITALS: BP 124/76
[2016-11-10] MEDS: TOPIRAMATE (TopAMAX) 25 MG TAB PO SCH (21:51)
[2016-11-10] MEDS: PANTOPRAZOLE 40MG TAB (PROTONIX) PO SCH (21:53)
[2016-11-10] MEDS: METOPROLOL SUCC *XL* 25MG TAB (TopROL *XL*) PO SCH (21:53)
[2016-11-11] VITALS (9 sets, daily range): BP systolic 117–138; BP diastolic 69–92
[2016-11-11] MEDS: NS 1,000 ML IV SCH ×3 (01:07→17:25)
[2016-11-11] MEDS: LEVALBUTEROL 1.25 MG/0.5 ML CONCENTRATE NEB INH SCH ×6 (02:54→23:26)
[2016-11-11] MEDS: IPRATROPIUM 0.02% SOLN 0.5MG/2.5 ML NEB INH SCH ×6 (02:54→23:26)
[2016-11-11] MEDS: HEPARIN SOD (PORCINE) 5000 UNITS/ML VIAL SC SCH ×3 (06:00→22:06)
--- NOTE | 2016-11-11 07:21 | IPN ---
DATE: 11/11/2016 36-year-old female seen at bedside. Feels that her chest tightness seems to be doing better after the dose of Solu-Medrol we gave her yesterday. She has been nothing by mouth (n.p.o.) since midnight and we are planning on an esophagogastroduodenoscopy (EGD) later this morning with Dr. Castro. She denies any nausea, vomiting. No abdominal pain. She states she does continue to have some vague pain and similar complaints yesterday in her back and between her shoulder blades. OBJECTIVE: Temperature is 99, pulse 108, respiratory rate 20, blood pressure (BP) 117/69, SPO2 is 96% on room air. General: The patient appears to be in no acute distress, alert and oriented. HEENT: Unremarkable. Lungs: Clear to auscultation. Heart: Regular rate and rhythm. Abdomen: Soft. Extremities: No edema. No calf tenderness. LABORATORY DATA: Pending at this time. ASSESSMENT/PLAN: 1. Atypical chest pain with radiation to her back, epigastric discomfort upon admission. Concern is for acid reflux. I did speak to the gastroenterology team in [place]. She had her last EGD in January 2016 which did not show any abnormalities. No Israel's esophagitis. We did increase her Protonix to 40 mg twice a day, continued with Carafate and will do a repeat EGD on her today to see how she looks. Her upper GI with small bowel follow-through that was done yesterday did read as the gastroesophageal junction as patulous and there was gastroesophageal reflux disease (GERD) demonstrated above the level of the yandy, otherwise unremarkable double contrast upper GI and small bowel follow-through. Dr. Castro has been consulted and will see how she looks on EGD. 2. Wheeze with underlying history of asthma in the past as a child. She did tolerate the Solu-Medrol. Will start her on a prednisone taper today and check a bedside spirometry. We may want to consider adding additional inhalers, perhaps an Advair inhaler. Before doing so, I would like to check a bedside spirometry to confirm whether or not she has obstructive lung disease. 3. Insomnia. No current issues. 4. Hypertension on admission with some tachycardia. Her pain level seems to be better controlled. Blood pressure is stable. Her heart rate does appear to be improving as well. As mentioned previously, she did have a CT angio of the chest that was performed on 11/07/2016 and did not demonstrate any pulmonary embolism or any acute findings at that time. 5. Deep vein thrombosis (DVT prophylaxis. Will continue with subcutaneous heparin.
[2016-11-11 07:30] LABS: EOS % 0.5 % (0.0-3.0); LARGE UNSTAINED CELL # 0.1 K/mm3 (0.0-0.4); LARGE UNSTAINED CELL % 0.8 % (0.0-4.0); LYMPH # 1.4 K/mm3 (1.5-4.5); LYMPH % 14.1 % (24.0-44.0); MEAN CORPUSCULAR HEMOGLOBIN 28.9 pg (27.0-33.0); MEAN CORPUSCULAR VOLUME 90.3 fl (80.0-96.0); MONO # 0.4 K/mm3 (0.0-0.8); MONO % 4.6 % (0.0-5.0); NEUTROPHILS # 7.4 K/mm3 (1.8-7.7); NEUTROPHILS % 80.1 % (36.0-66.0); PLATELET COUNT, AUTOMATED 219 k/mm3 (150-450); RED CELL DISTRIBUTION WIDTH 13.1 % (11.5-14.5); WHITE BLOOD COUNT 9.2 K/mm3 (4.0-10.0)
[2016-11-11] MEDS: SUCRALFATE 1 GM TAB PO SCH ×4 (07:30→22:08)
[2016-11-11 07:52] LABS: ANION GAP 10 MEQ/L (8-16); BLOOD UREA NITROGEN 10 MG/DL (7-18); CALCIUM LEVEL 8.6 MG/DL (8.5-10.1); CARBON DIOXIDE LEVEL 18 MEQ/L (21-32); CHLORIDE LEVEL 115 MEQ/L (98-107); CREATININE FOR GFR 0.78 MG/DL (0.55-1.02); GLOMERULAR FILTRATION RATE > 60.0 (>60); GLUCOSE, FASTING 94 MG/DL (70-105); POTASSIUM SERUM 3.6 MEQ/L (3.5-5.1); SODIUM LEVEL 143 MEQ/L (136-145)
[2016-11-11] MEDS: BUDESONIDE 0.5 MG/2 ML INHALATION SUSPENSION INH SCH ×2 (08:06→19:49)
[2016-11-11] MEDS: PANTOPRAZOLE 40MG TAB (PROTONIX) PO SCH ×2 (09:00→22:07)
[2016-11-11] MEDS: TOPIRAMATE (TopAMAX) 25 MG TAB PO SCH ×2 (09:25→22:08)
[2016-11-11] MEDS ORDERED: LIDOCAINE 2% INJ 100 MG/5 ML SDV (FOR ANES.) As Ordered ONE (14:35)
[2016-11-11] MEDS ORDERED: PROPOFOL 200 MG/20 ML VIAL As Ordered ONE (14:35)
--- NOTE | 2016-11-11 14:59 | ROOR ---
Patient Name: Alexandria Sol Procedure Date: 11/11/2016 2:42 PM Date of : 1980 Age: 36 Room: [facility] Gender: Female Note Status: Finalized Procedure: Upper GI endoscopy + Biopsies Indications: Unexplained chest pain Providers: Vic Castro MD Referring MD: Salo Avila MD Requesting Provider: Medicines: Monitored Anesthesia Care Complications: No immediate complications. Procedure: Pre-Anesthesia Assessment: - The heart rate, respiratory rate, oxygen saturations, blood pressure, adequacy of pulmonary ventilation, and response to care were monitored throughout the procedure. The Endoscope was introduced through the mouth, and advanced to the second part of duodenum. The upper GI endoscopy was accomplished without difficulty. The patient tolerated the procedure well. Findings: The Z-line was irregular and was found 37 cm from the incisors. Multiple biopsies were obtained with cold forceps for evaluation to rule out Israel's Esophagus randomly at the gastroesophageal junction. A medium-sized hiatal hernia was present. No other significant abnormalities were identified in a careful examination of the stomach. The exam of the duodenum was otherwise normal. Impression: - Z-line irregular, 37 cm from the incisors. - Medium-sized hiatal hernia. - Multiple biopsies were obtained at the gastroesophageal junction. - The examination was otherwise normal. Recommendation: - Patient has a contact number available for emergencies. The signs and symptoms of potential delayed complications were discussed with the patient. Return to normal activities tomorrow. Written discharge instructions were provided to the patient. - High fiber diet. - Return patient to [facility] for ongoing care. - Continue present medications. - Await pathology results. - The findings and recommendations were discussed with the patient's family. - The findings and recommendations were discussed with the referring physician. - Check Portal Online for Path Results.([email or web address]) Vic Castro MD Vic Castro MD 11/11/2016 2:58:55 PM This report has been signed electronically. Number of Addenda: 0 Note Initiated On: 11/11/2016 2:42 PM Estimated Blood Loss: Estimated blood loss: none.
[2016-11-11] MEDS: PERCOCET 5MG/325MG TAB PO PRN (17:29)
[2016-11-11] MEDS ORDERED: LEVALBUTEROL HFA 45MCG/ACT 15 GM INHALER INH PRN (18:00)
[2016-11-11] MEDS: METOPROLOL SUCC *XL* 25MG TAB (TopROL *XL*) PO SCH (22:07)
[2016-11-12] VITALS: BP 105/58
[2016-11-12 04:00] VITALS: BP 129/81
[2016-11-12] MEDS: NS 1,000 ML IV SCH (04:00)
[2016-11-12] MEDS: LEVALBUTEROL 1.25 MG/0.5 ML CONCENTRATE NEB INH SCH ×2 (05:14→08:00)
[2016-11-12] MEDS: IPRATROPIUM 0.02% SOLN 0.5MG/2.5 ML NEB INH SCH ×2 (05:14→08:00)
[2016-11-12] MEDS ORDERED: LEVA12INH INH (05:56)
[2016-11-12] MEDS ORDERED: NEXI40CA PO (05:56)
[2016-11-12] MEDS ORDERED: PULM90IN INH (05:56)
[2016-11-12] MEDS ORDERED: XOPEAER INH (05:56)
[2016-11-12] MEDS ORDERED: SUCR1TA PO (05:56)
[2016-11-12] MEDS ORDERED: COMP1MIS3 XX (05:58)
[2016-11-12] MEDS: HEPARIN SOD (PORCINE) 5000 UNITS/ML VIAL SC SCH (06:00)
[2016-11-12 07:24] LABS: BASO % 0.4 % (0.0-1.0); EOS # 0.1 K/mm3 (0.0-0.50); EOS % 2.5 % (0.0-3.0); LARGE UNSTAINED CELL # 0.1 K/mm3 (0.0-0.4); LARGE UNSTAINED CELL % 1.1 % (0.0-4.0); LYMPH # 1.9 K/mm3 (1.5-4.5); LYMPH % 34.6 % (24.0-44.0); MEAN CORPUSCULAR HEMOGLOBIN 29.3 pg (27.0-33.0); MEAN CORPUSCULAR HGB CONC 32.9 g/dl (32.0-36.5); MEAN CORPUSCULAR VOLUME 89.2 fl (80.0-96.0); MONO # 0.3 K/mm3 (0.0-0.8); MONO % 5.1 % (0.0-5.0); NEUTROPHILS % 56.1 % (36.0-66.0); PLATELET COUNT, AUTOMATED 190 k/mm3 (150-450); RED CELL DISTRIBUTION WIDTH 13.1 % (11.5-14.5); WHITE BLOOD COUNT 5.2 K/mm3 (4.0-10.0)
--- NOTE | 2016-11-12 07:42 | BSSPIR ---
DATE OF PROCEDURE: 11/09/2016 Spirometry shows a normal forced vital capacity and FEV-1. The FEV-1/FVC ratio was normal. Flow volume curve shows some flattening in the excretory limb. IMPRESSION: Normal spirometry flow volume loop study.
[2016-11-12 07:43] LABS: ANION GAP 9 MEQ/L (8-16); BLOOD UREA NITROGEN 13 MG/DL (7-18); CALCIUM LEVEL 8.3 MG/DL (8.5-10.1); CARBON DIOXIDE LEVEL 19 MEQ/L (21-32); CHLORIDE LEVEL 116 MEQ/L (98-107); CREATININE FOR GFR 0.89 MG/DL (0.55-1.02); GLOMERULAR FILTRATION RATE > 60.0 (>60); GLUCOSE, FASTING 101 MG/DL (70-105); POTASSIUM SERUM 3.6 MEQ/L (3.5-5.1); SODIUM LEVEL 144 MEQ/L (136-145)
[2016-11-12 08:00] VITALS: BP 125/82
[2016-11-12] MEDS: BUDESONIDE 0.5 MG/2 ML INHALATION SUSPENSION INH SCH (08:00)
[2016-11-12] MEDS: SUCRALFATE 1 GM TAB PO SCH (08:20)
[2016-11-12] MEDS: TOPIRAMATE (TopAMAX) 25 MG TAB PO SCH (08:20)
[2016-11-12] MEDS: PANTOPRAZOLE 40MG TAB (PROTONIX) PO SCH (08:20)
--- NOTE | 2016-11-12 08:47 | DSES ---
DATE OF ADMISSION: 11/09/2016 DATE OF DISCHARGE: 11/12/2016 PRIMARY CARE PROVIDER: Dr. Avila. CELLULAR BIOLOGIST: Dr. Hernandez. CONSULTATIONS: None. PROCEDURES: None. COMPLICATIONS: None. DISCHARGE DIAGNOSES: 1. Increased shortness of breath, possibly underlying reactive airway/asthma. 2. Atypical chest pain ruled out PE and cardiac causes. 3. Hiatal hernia with gastroesophageal reflux disease (GERD). 4. Palpitations with unremarkable thyroid workup. 5. Previous mild acute kidney injury resolved. 6. Positive rheumatoid factor without any significant other findings on immunology or serology workup. BRIEF HOSPITAL COURSE: Mrs. Sol is a pleasant 36-year-old female who presented to the emergency department with recurrent chest pain, shortness of breath. Had previously been seen and evaluated by Dr. Rodríguez who felt that the issues were not cardiac related. She does have a previous history of asthma. She had noticed that she had had some wheeze during the course of her hospital stay. She did inform me that she had been using some cleaning agents a few weeks ago and had started to develop some tightness in her chest, shortness of breath that has been slow to resolve. She has had a pretty extensive workup during her hospital stay as well as her previous hospital stay dated a few days prior to this admission with an unremarkable EKG. CT angio of the chest was negative for pulmonary embolism. No other acute findings were seen as well. We did send her for an upper GI with small-bowel follow-through. Those results demonstrated a patulous gastroesophageal (GE) junction with some gastroesophageal reflux (GERD) demonstrated at the level of the yandy with no other significant findings. Her EGD was performed by Dr. Castro, did show some slight irregularity of the Z-line. Biopsies were taken. Medium size hiatal hernia was noted and again she does have some underlying acid reflux. She was given recommendations regarding high fiber diet and to follow up with the pathology results from the biopsies, however, Dr. Castro did not believe that this was necessarily contributing to her respiratory symptoms. She did have a bedside spirometry that was performed that did show some slight flattening of the expiratory phase, otherwise it was a normal spirometry. She did get a dose of Solu-Medrol while she was admitted as well as Joe and had been started previously on Pulmicort and Xopenex inhaler. Will continue on those and she can followup outpatient and likely will need outpatient referral to pulmonology for a methacholine challenge test. Any rate she, does appear to be back to her baseline today and appropriate for discharge. For further information regarding intake, physical labs, diagnostics, please refer to the history and physical. PHYSICAL EXAMINATION: This morning temperature 98.5, pulse 107 and regular, respiratory rate 18, BP 129/81, SPO2 is 97% on room air. General: The patient appears to be in no acute distress. She is alert, pleasant. HEENT: Unremarkable. Lungs: Clear. Heart: Regular rhythm. Abdomen: Soft. Extremities: No edema or calf tenderness. LABORATORY DATA: White count 5.2, hemoglobin 10.9, platelets 190,000. Sodium 144, potassium 3.6, chloride 116, bicarb 19, anion gap 9, BUN is 13, creatinine 0.89, glucose 101. Discharge condition is good. DISPOSITION: Discharge to home with appropriate followup. DISCHARGE MEDICATIONS: - Pulmicort inhaler 2 puffs twice daily - Nexium 40 mg twice daily - Xopenex inhaler as directed every 1-2 puffs ever 4 to 6 hours as needed - Xopenex nebulizer as directed as needed - Carafate 1 gram by mouth before meals and at bedtime - Benadryl 50 mg daily at bedtime for sleep - metoprolol ER 25 mg daily at bedtime for palpitations, tachycardia. - Topamax 50 mg twice daily DISCHARGE INSTRUCTIONS: Discharge to home. Follow up with Dr. Avila within the next 5-7 days. She will likely need a referral to pulmonology for methacholine challenge. High-fiber diet. Activity as tolerated. She should seek medical attention if symptoms worsen or progress. She voices understanding. Discharge took 35 minutes. TRACEE
--- NOTE | 2016-11-13 06:19 | CR ---
DATE OF CONSULTATION: 11/11/2016 This is a 36-year-old white female admitted to [facility] for complaint of left-sided chest discomfort and shortness of breath. The patient has been complaining of difficulty with shortness of breath since August. She had noticed recently that her symptoms have become worse. She apparently has a known history of chronic reflux and has had previous endoscopies showing hiatal hernia but no Israel's. She relates that her reflux is controlled and is on Nexium 40 mg daily to help control her symptoms. She had no fevers, night sweats or shaking chills. No involuntary weight loss. No nausea or vomiting. The patient had been admitted 11/08/2016 and discharged on 11/09/2016 for evaluation of chest pain, no palpitations. CT scan at that time was negative for a pulmonary emboli. MRI of the cervical and thoracic spine and cardiology consult showed no abnormalities. She had been seen by Dr. Rodríguez who felt that there was no cardiac etiology to cause symptoms. The patient is being seen by gastrointestinal (GI) to further evaluate for possible reflux and/or GI source for her symptoms. The patient has had an upper GI series with small-bowel follow-through on 11/10/2016 which was interpreted as a patulous GE junction showing some reflux to the level of the yandy. Otherwise upper GI series and small-bowel follow-through was negative. Laboratory studies on admission were essentially normal. Her hemoglobin and hematocrit down to 10.9 and 3.2. Chemistry was normal. Past medical history is as above. ALLERGIES: No known declared allergies. PAST MEDICAL HISTORY: 1. Hypertension diagnosed at age 33. 2. Chronic reflux. 3 Insomnia. 4. Prior history of asthma. 5. Acute kidney injury secondary to non-steroidal anti-inflammatory drugs (NSAIDs). PAST SURGICAL HISTORY: Hysterectomy. Uterine prolapse. Tonsillectomy. Multiple EGDs for reflux in [place]. MEDICATIONS INCLUDE: - Benadryl - Nexium - metoprolol - Topamax SOCIAL HISTORY: The patient used to smoke a total of 5 years, quit in August. 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 FAMILY HISTORY: Noncontributory to the above problem. REVIEW OF SYSTEMS: Noncontributory. EXAM: Well-nourished white female in no obvious acute distress. Some atypical chest pain, unknown etiology at present time. PLAN: Set the patient up for endoscopy for further evaluation of patient's reflux, rule out Israel's and check for inflammation. PLAN 1. EGD. 2. Maintain Nexium. 3. Recommend pulmonary consultation for possible hyper-reactive airway disease.
== END 2016-11-12 10:00 | disposition home or self-care (01) ==
LOC: M ED 16:02 → M ED INP 16:03 → M PED 11-10 14:49
PROVIDERS: ADMIT General Practice; ATTEND Hospitalist
DX: R07.89 Other chest pain (principal); R06.02 Shortness of breath; J45.909 Unspecified asthma, uncomplicated; G47.00 Insomnia, unspecified; I10 Essential (primary) hypertension; K21.9 Gastro-esophageal reflux disease without esophagitis; R00.0 Tachycardia, unspecified; Z79.899 Other long term (current) drug therapy; Z87.891 Personal history of nicotine dependence
CPT/HCPCS: 36415; 43239; 71020; 74245; 80048; 80076; 82150; 82550; 82553; 83690; 83735; 84443; 85025; 86677; 88305; 93005; 93041; 94640; 94760; 96374; 99285; J2930

== ENCOUNTER → 2017-02-09 | Outpatient (CLI) | payer OTHER ==
[~2017-02-09] MED LIST changes: +COMP1MIS3 XX; +LEVA12INH INH; +LEVAINH INH; +METHACHOLINE KIT (J7674) INH ONE; +METO1TAB32 PO; -METO25TA74 PO; +MOBI4TAB PO; -MOBI7.5T10 PO; +PULM90IN INH; +SUCR1TA PO; -TOPA50TA7 PO; +TOPA50TA8 PO; +TOPI25TA10 PO
--- NOTE | 2017-02-09 18:30 | PFTRPT ---
Tech: Jaelyn ROGER RRT Age: 36 Sex: Female Race: Height: 63.50 Inches Weight: 164.00 Lbs BSA: 1.79 Diagnosis: R06.02 TECH NOTE: Xopenex for postbronchodilator. METHACHOLINE CHALLENGE REPORT: ORDERING PROVIDER: Roberto Smith MD DATE OF SERVICE: 02/09/17 INTERPRETATION: The study was of excellent technical quality. Under protocol, methacholine was administered. At a dose of 0.25 mg (1.375 CDUs), a 45% decline in the FEV1 was noted. The PC20 of 0.06 is significant. Flow rates returned to baseline post bronchodilator administration. IMPRESSION: Positive methacholine challenge study. MTDD
== END ==
LOC: M CARPUL 10:32
PROVIDERS: ATTEND Internal Medicine Pulmonary Disease
DX: R06.02 Shortness of breath (principal)

== ENCOUNTER → 2017-05-05 | Outpatient (CLI) | payer BC ==
[~2017-05-05] MED LIST changes: -METHACHOLINE KIT (J7674) INH ONE
== END ==
LOC: M LAB 16:18
PROVIDERS: ATTEND Internal Medicine Gastroenterology
DX: R14.0 Abdominal distension (gaseous) (principal); M19.90 Unspecified osteoarthritis, unspecified site; Z86.010 Personal history of colon polyps

== ENCOUNTER → 2017-05-05 | Outpatient (CLI) | payer BC ==
[2017-05-05 19:50] LABS: ANION GAP 8 MEQ/L (8-16); BLOOD UREA NITROGEN 19 MG/DL (7-18); CALCIUM LEVEL 9.2 MG/DL (8.5-10.1); CARBON DIOXIDE LEVEL 27 MEQ/L (21-32); CHLORIDE LEVEL 106 MEQ/L (98-107); CHOLESTEROL LEVEL 181 MG/DL (<200); CREATININE FOR GFR 0.87 MG/DL (0.55-1.02); GLOMERULAR FILTRATION RATE > 60.0 (>60); GLUCOSE, FASTING 78 MG/DL (70-105); SODIUM LEVEL 141 MEQ/L (136-145); TRIGLYCERIDES LEVEL 76 MG/DL (<150)
== END ==
LOC: M LAB 16:22
PROVIDERS: ATTEND Family Medicine
DX: I10 Essential (primary) hypertension (principal); M35.9 Systemic involvement of connective tissue, unspecified

== ENCOUNTER → 2018-01-25 | Outpatient (CLI) | payer BC | LOC: M LRY 13:16 | DX: R06.02 Shortness of breath (principal) | CPT/HCPCS: G0463 ==

== ENCOUNTER → 2018-10-28 | Outpatient (REF) | payer BC ==
[2018-10-28 19:59] LABS: CHLAMYDIA DNA AMPLIFICATION NEGATIVE (NEGATIVE); GC DNA AMPLIFICATION NEGATIVE (NEGATIVE)
== END ==
LOC: M LAB REF 17:02
PROVIDERS: ATTEND Advanced Practice Midwife
DX: Z11.3 Encounter for screening for infections with a predominantly sexual mode of transmission (principal)

== ENCOUNTER → 2018-11-25 | Outpatient (REF) | payer BC ==
[2018-11-25 19:42] LABS: APPEARANCE, URINE HAZY (CLEAR); BACTERIA, URINE AUTO NEGATIVE (NEGATIVE); BILIRUBIN, URINE AUTO NEGATIVE (NEGATIVE); BLOOD, URINE BLOOD NEGATIVE (NEGATIVE); COLOR, URINE YELLOW (YELLOW); GLUCOSE, URINE (UA) AUTO NEGATIVE (NEGATIVE); KETONE, URINE AUTO NEGATIVE (NEGATIVE); LEUKOCYTE ESTERASE, URINE AUTO NEGATIVE (NEGATIVE); MUCUS, URINE SMALL (NEGATIVE); NITRITE, URINE AUTO NEGATIVE (NEGATIVE); PROTEIN, URINE AUTO NEGATIVE (NEGATIVE); RBC, URINE AUTO 0 /HPF (0-3); SPECIFIC GRAVITY URINE AUTO 1.025 (1.002-1.035); SQUAMOUS EPITHELIAL CELL UR AU 4 /HPF (0-6); UROBILINOGEN, URINE AUTO 0.2 mg/dL (0.0-2.0); WBC, URINE AUTO 0 /HPF (0-3)
== END ==
LOC: M SMT 17:42
PROVIDERS: ATTEND Nurse Practitioner Family
DX: N39.0 Urinary tract infection, site not specified (principal)

== ENCOUNTER → 2019-01-06 | Outpatient (CLI) | payer BC ==
--- NOTE | 2019-01-06 14:02 | REP ---
REASON: Urinary tract infections. PRIORS: None. FINDINGS: Multiple ultrasonographic images of the right kidney show the right kidney to measure 10.4 x 5.4 x 4.0. The renal cortical echotexture is unremarkable. There are no masses. There is good corticomedullary differentiation. There is no hydronephrosis. There are no perinephric fluid collections. Multiple ultrasonographic images of the left kidney show the left kidney to measure 10.3 x 4.8 x 5.3 cm. The renal cortical echotexture is unremarkable. There are no masses. There is good corticomedullary differentiation. There is no hydronephrosis. There are no perinephric fluid collections. There is an incidental tiny subcentimeter sized cyst in the inferior pole of the right kidney. This is essentially unchanged to slightly larger compared to the images of the right kidney obtained during right upper quadrant ultrasound on 04/04/2010. IMPRESSION: Unremarkable renal ultrasonography. Electronically Signed by Raphael Boggs DO 01/06/2019 04:44 P
== END ==
LOC: M RAD 12:30
PROVIDERS: ATTEND Nurse Practitioner Family
DX: N39.0 Urinary tract infection, site not specified (principal)

== ENCOUNTER → 2020-12-27 | Outpatient (CLI) | payer BC | LOC: M PLALAB 14:15 | PROVIDERS: ATTEND Advanced Practice Midwife | DX: Z13.71 Encounter for nonprocreative screening for genetic disease carrier status (principal); Z80.3 Family history of malignant neoplasm of breast ==

== ENCOUNTER → 2020-12-27 | Outpatient (CLI) | payer BC ==
--- NOTE | 2021-01-07 18:44 | REPMRS ---
Patient History The patient states she had a clinical breast exam in November 2020. Family history of breast cancer at age 39 in mother, breast cancer at age 55 in maternal aunt, breast cancer in maternal cousin, breast cancer in paternal cousin, breast cancer in paternal aunt, colorectal cancer at age 40 in paternal grandmother. 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 Volpara breast density is c. Patient states no breast complaints today. Patient has signed MRS History Sheet. Digital Woman Screen Mammo: December 27, 2020 - Exam #: [id number] Bilateral CC and MLO view(s) were taken. Technologist: Elvia Bnods, Technologist FINDINGS: The breast tissue is heterogeneously dense. This may lower the sensitivity of mammography. There has been no change in the appearance of the mammogram from the prior studies. There is a moderate amount of residual fibroglandular tissue which is fairly symmetric. There is no interval development of dominant mass, areas of architectural distortion, or clustered microcalcification typical of malignancy. Assessment: BI-RADS/ACR category 1 mammogram. Negative Mammogram. Recommendation Routine screening mammogram in 1 year (for women over age 40). This mammogram was interpreted with the aid of an FDA-approved computer-aided dectection system. The Lifetime Breast Cancer Risk is estimated at 25.1%. Yearly supplemental screening MRI of the breasts is recommended for patients with an elevated lifetime risk of breast cancer of 20% or greater, in addition to annual screening mammography, staggered every 6 months. Electronically Signed By: Manas Gibson MD 01/07/21 [id number]
== END ==
LOC: M WHC 13:02
PROVIDERS: ATTEND Advanced Practice Midwife
DX: Z12.31 Encounter for screening mammogram for malignant neoplasm of breast (principal); Z80.3 Family history of malignant neoplasm of breast; Z80.8 Family history of malignant neoplasm of other organs or systems

== ENCOUNTER 2021-08-21 12:04 | Emergency (ER) | payer BC ==
[~2021-08-21] VITALS: Ht 165.1 cm; Wt 66.7 kg
[2021-08-21] MEDS ORDERED: HYDR200T3 (12:34)
[2021-08-21] MEDS ORDERED: FOLI1TAB11 (12:34)
[2021-08-21] MEDS ORDERED: LISI10TA22 (12:34)
[2021-08-21] MEDS ORDERED: BUPR150T5 (12:34)
[2021-08-21] MEDS ORDERED: DULO1CAP5 (12:34)
[2021-08-21] MEDS ORDERED: LEFL1TAB4 (12:34)
[2021-08-21] MEDS ORDERED: AMPH1CAP16 PO (12:34)
[2021-08-21] MEDS ORDERED: TAMS1CAP17 (12:34)
[2021-08-21] MEDS ORDERED: NALT50TA4 (12:34)
[2021-08-21] MEDS ORDERED: HYOS0.1259 PO (12:34)
[2021-08-21 13:29] LABS: BASO # 0.1 10^3/uL (0.0-0.2); BASO % 1.1 % (0.0-1.0); EOS % 0.7 % (0.0-3.0); HEMATOCRIT 37.5 % (36.0-47.0); HEMOGLOBIN 12.2 g/dl (12.0-15.5); LYMPH # 1.2 10^3/uL (1.5-5.0); LYMPH % 26.6 % (24.0-44.0); MEAN CORPUSCULAR HEMOGLOBIN 30.3 pg (27.0-33.0); MEAN CORPUSCULAR HGB CONC 32.5 g/dl (32.0-36.5); MEAN CORPUSCULAR VOLUME 93.1 fl (80.0-96.0); MONO # 0.5 10^3/uL (0.0-0.8); MONO % 10.3 % (2.0-8.0); NEUTROPHILS # 2.7 10^3/uL (1.5-8.5); NEUTROPHILS % 61.3 % (36.0-66.0); PLATELET COUNT, AUTOMATED 275 10^3/uL (150-450); RED BLOOD COUNT 4.03 10^6/uL (4.00-5.40); WHITE BLOOD COUNT 4.5 10^3/uL (4.0-10.0)
[2021-08-21 13:56] LABS: BLOOD UREA NITROGEN 14 MG/DL (7-18); CALCIUM LEVEL 9.9 MG/DL (8.5-10.1); CARBON DIOXIDE LEVEL 27 MEQ/L (21-32); CHLORIDE LEVEL 107 MEQ/L (98-107); CREATININE FOR GFR 0.98 MG/DL (0.55-1.30); GLOMERULAR FILTRATION RATE > 60.0 (>58); GLUCOSE, FASTING 103 MG/DL (70-100); POTASSIUM SERUM 3.9 MEQ/L (3.5-5.1); SODIUM LEVEL 141 MEQ/L (136-145)
[2021-08-21] MEDS ORDERED: KETOROLAC 30 MG/ML 1ML VIAL IM ONE (17:05)
[2021-08-21] MEDS ORDERED: KETO10TAB PO (17:40)
[2021-08-21] MEDS ORDERED: ONDA-83 PO (17:41)
[2021-08-21 17:51] VITALS: BP 135/90
== END 2021-08-21 17:55 | disposition home or self-care (01) ==
LOC: M ED 12:04
DX: N20.0 Calculus of kidney (principal); J45.909 Unspecified asthma, uncomplicated; I10 Essential (primary) hypertension; M05.9 Rheumatoid arthritis with rheumatoid factor, unspecified; Z79.899 Other long term (current) drug therapy; F17.210 Nicotine dependence, cigarettes, uncomplicated
CPT/HCPCS: 36415; 74176; 80048; 81001; 85025; 96372; 99284; J1885

== ENCOUNTER 2022-01-09 10:55 | Emergency (ER) | payer BC ==
[~2022-01-09] VITALS: Ht 162.6 cm; Wt 61.4 kg
[~2022-01-09 10:55] MED LIST changes: +AMPH1CAP16 PO; +BUPR-71; +DULO1CAP5; +FOLI1TAB11; +HYDR200T3; +HYOS0.1259 PO; +KETO10TAB PO; +LEFL1TAB4; +LISI10TA22; +NALT50TA4; +ONDA-83 PO; +TAMS1CAP17
[2022-01-09 11:52] LABS: BASO # 0.1 10^3/uL (0.0-0.2); BASO % 1.8 % (0.0-1.0); EOS % 0.9 % (0.0-3.0); HEMATOCRIT 37.8 % (36.0-47.0); HEMOGLOBIN 12.7 g/dl (12.0-15.5); LYMPH # 1.4 10^3/uL (1.5-5.0); LYMPH % 41.8 % (24.0-44.0); MEAN CORPUSCULAR HEMOGLOBIN 29.7 pg (27.0-33.0); MEAN CORPUSCULAR HGB CONC 33.6 g/dl (32.0-36.5); MEAN CORPUSCULAR VOLUME 88.5 fl (80.0-96.0); MONO # 0.5 10^3/uL (0.0-0.8); MONO % 14.2 % (2.0-8.0); NEUTROPHILS # 1.4 10^3/uL (1.5-8.5); PLATELET COUNT, AUTOMATED 236 10^3/uL (150-450); RED BLOOD COUNT 4.27 10^6/uL (4.00-5.40); WHITE BLOOD COUNT 3.3 10^3/uL (4.0-10.0)
[2022-01-09] MEDS ORDERED: ISOVUE-370 76% 100ML VIAL As Ordered ONE (13:04)
[2022-01-09] MEDS ORDERED: GABA-283 PO (13:41)
[2022-01-09 13:45] LABS: ALBUMIN 3.9 GM/DL (3.2-5.2); BILIRUBIN,DIRECT 0.2 MG/DL (0.0-0.2); BILIRUBIN,TOTAL 0.4 MG/DL (0.2-1.0); FREE T4 1.17 NG/DL (0.76-1.46); THYROID STIMULATING HORMONE 1.48 uIU/ML (0.358-3.740); TOTAL PROTEIN 6.6 GM/DL (6.4-8.2)
[2022-01-09] MEDS ORDERED: methylPREDNISolone 125MG 2ML VIAL IV ONE (14:15)
[2022-01-09 14:42] LABS: CK-MB VALUE MASS < 1.0 NG/ML (<3.6); CPK CREATINE PHOSPHOKINASE 73 U/L (26-192); MB/CK RELATIVE INDEX 1.37 (< OR =4)
[2022-01-09 15:52] VITALS: BP 142/92
[2022-01-09] MEDS ORDERED: PRED10TA2 PO (16:01)
== END 2022-01-09 16:03 | disposition home or self-care (01) ==
LOC: M ED 10:55
DX: R09.89 Other specified symptoms and signs involving the circulatory and respiratory systems (principal); R06.02 Shortness of breath; Z86.16 Personal history of COVID-19; I10 Essential (primary) hypertension; J45.909 Unspecified asthma, uncomplicated; M35.00 Sjogren syndrome, unspecified; Z79.899 Other long term (current) drug therapy
CPT/HCPCS: 71045; 71275; 80047; 80076; 82550; 82553; 83690; 83880; 84439; 84443; 84484; 84702; 85025; 93005; 93041; 94760; 96374; 99284; J2930; Q9967

== ENCOUNTER → 2022-05-28 | Outpatient (CLI) | payer BC ==
[~2022-05-28] MED LIST changes: +GABA-283 PO; +PRED10TA2 PO
== END ==
LOC: M SLEEP HO 14:25
PROVIDERS: ATTEND Internal Medicine Pulmonary Disease
DX: J45.30 Mild persistent asthma, uncomplicated (principal); R06.83 Snoring

== ENCOUNTER → 2022-09-30 | Outpatient (CLI) | payer BC | LOC: M WHC 16:49 | PROVIDERS: ATTEND Advanced Practice Midwife | DX: Z12.31 Encounter for screening mammogram for malignant neoplasm of breast (principal); Z91.89 Other specified personal risk factors, not elsewhere classified ==

== ENCOUNTER → 2023-01-11 | Outpatient (CLI) | payer BC ==
[~2023-01-11] MED LIST changes: -HYDR200T3; +HYDR200T46
== END ==
LOC: M WHC 15:18
PROVIDERS: ATTEND Advanced Practice Midwife
DX: Z12.31 Encounter for screening mammogram for malignant neoplasm of breast (principal)
CPT/HCPCS: 77065; G0279

== ENCOUNTER → 2023-05-27 | Outpatient (REF) | payer BC ==
[~2023-05-27] MED LIST changes: -GABA-283 PO; +GABA-284 PO
== END ==
LOC: M PLALAB 16:46
PROVIDERS: ATTEND Advanced Practice Midwife
DX: Z12.72 Encounter for screening for malignant neoplasm of vagina (principal)

== ENCOUNTER → 2023-11-12 | Outpatient (CLI) | payer BC, OTHER ==
[~2023-11-12] MED LIST changes: -LEFL1TAB4; +LEFL20TA15
[2023-11-12 13:29] LABS: EOS # 0.1 10^3/uL (0.0-0.5); EOS % 1.3 % (0.0-3.0); HEMATOCRIT 37.6 % (36.0-47.0); HEMOGLOBIN 12.1 g/dl (12.0-15.5); LYMPH # 0.9 10^3/uL (1.5-5.0); MEAN CORPUSCULAR HEMOGLOBIN 30.1 pg (27.0-33.0); MEAN CORPUSCULAR HGB CONC 32.2 g/dl (32.0-36.5); MEAN CORPUSCULAR VOLUME 93.5 fl (80.0-96.0); MONO # 0.4 10^3/uL (0.0-0.8); MONO % 9.4 % (2.0-8.0); NEUTROPHILS # 2.5 10^3/uL (1.5-8.5); NEUTROPHILS % 64.8 % (36.0-66.0); PLATELET COUNT, AUTOMATED 229 10^3/uL (150-450); RED BLOOD COUNT 4.02 10^6/uL (4.00-5.40); WHITE BLOOD COUNT 3.8 10^3/uL (4.0-10.0)
[2023-11-12 13:52] LABS: URIC ACID 2.6 MG/DL (3.1-7.8)
[2023-11-12 13:54] LABS: C REACTIVE PROTEIN QUANTITATIV < 0.40 MG/DL (<1.0)
[2023-11-12 13:55] LABS: ALBUMIN 3.7 G/DL (3.2-5.2); ALKALINE PHOSPHATASE 47 U/L (46-116); ALT/SGPT 25 U/L (7.0-40); AST/SGOT 19 U/L (<34); BILIRUBIN,TOTAL 0.4 MG/DL (0.3-1.2); BLOOD UREA NITROGEN 21 MG/DL (9-23); CALCIUM LEVEL 9.5 MG/DL (8.5-10.1); CARBON DIOXIDE LEVEL 28 MMOL/L (20-31); CHLORIDE LEVEL 106 MMOL/L (98-107); CHOLESTEROL LEVEL 174 MG/DL (<200); CHOLESTEROL RISK RATIO 2.44 (<5); CREATININE FOR GFR 0.93 MG/DL (0.55-1.30); ERYTHROCYTE SEDIMENTATION RATE 2 mm/hr (0-20); GLOMERULAR FILTRATION RATE > 60.0 (>58); GLUCOSE, FASTING 90 MG/DL (60-100); HDL CHOLESTEROL 71.2 MG/DL (>40); LDL CHOLESTEROL 83.4 MG/DL (<100); NON-HDL-C 102.8 MG/DL; POTASSIUM SERUM 4.2 MMOL/L (3.5-5.1); RHEUMATOID FACTOR QUANT 6.1 IU/ML (<14); SODIUM LEVEL 138 MMOL/L (136-145); TOTAL PROTEIN 6.2 G/DL (5.7-8.2); TRIGLYCERIDES LEVEL 97 MG/DL (<150)
== END ==
LOC: M LAB 11:31
PROVIDERS: ATTEND Registered Nurse
DX: M13.0 Polyarthritis, unspecified (principal); Z13.220 Encounter for screening for lipoid disorders

== ENCOUNTER → 2024-01-19 | Outpatient (CLI) | payer BC, OTHER ==
[2024-01-19 18:41] LABS: BASO % 0.5 % (0.0-1.0); EOS % 0.5 % (0.0-3.0); HEMATOCRIT 36.1 % (36.0-47.0); HEMOGLOBIN 11.6 g/dl (12.0-15.5); LYMPH % 24.6 % (24.0-44.0); MEAN CORPUSCULAR HEMOGLOBIN 29.7 pg (27.0-33.0); MEAN CORPUSCULAR HGB CONC 32.1 g/dl (32.0-36.5); MEAN CORPUSCULAR VOLUME 92.3 fl (80.0-96.0); MONO # 0.4 10^3/uL (0.0-0.8); MONO % 9.9 % (2.0-8.0); NEUTROPHILS # 2.6 10^3/uL (1.5-8.5); NEUTROPHILS % 64.3 % (36.0-66.0); PLATELET COUNT, AUTOMATED 216 10^3/uL (150-450); RED BLOOD COUNT 3.91 10^6/uL (4.00-5.40)
[2024-01-19 19:07] LABS: ALBUMIN 3.9 G/DL (3.2-5.2); ALKALINE PHOSPHATASE 39 U/L (46-116); ALT/SGPT 29 U/L (7.0-40); AST/SGOT 20 U/L (<34); BILIRUBIN,TOTAL 0.5 MG/DL (0.3-1.2); BLOOD UREA NITROGEN 24 MG/DL (9-23); CARBON DIOXIDE LEVEL 25 MMOL/L (20-31); CHLORIDE LEVEL 107 MMOL/L (98-107); CREATININE FOR GFR 0.93 MG/DL (0.55-1.30); GLOMERULAR FILTRATION RATE > 60.0 (>58); GLUCOSE, FASTING 78 MG/DL (60-100); POTASSIUM SERUM 4.4 MMOL/L (3.5-5.1); SODIUM LEVEL 138 MMOL/L (136-145); TOTAL PROTEIN 6.1 G/DL (5.7-8.2)
[2024-01-19 19:08] LABS: FREE THYROXINE INDEX 2.6 % (1.3-4.8); T UPTAKE 34.3 % (22.5-37.0); THYROID STIMULATING HORMONE 0.778 uIU/ML (0.55-4.78); THYROXINE (T4) 7.6 UG/DL (4.5-10.9)
[2024-01-19 19:10] LABS: FOLATE 18.7 NG/ML (>5.4); VITAMIN B12 LEVEL 819 PG/ML (211-911)
== END ==
LOC: M LAB 14:29
PROVIDERS: ATTEND Psychiatry & Neurology Neurology
DX: E07.9 Disorder of thyroid, unspecified (principal); E53.8 Deficiency of other specified B group vitamins